=== PATIENT | female | born 1980 | race Caucasian/White ===

== ENCOUNTER 2021-12-11 03:53 | Emergency (ER) | payer OTHER, SELFPAY ==
[2021-12-11 04:05] VITALS: BP 175/77; PULSE 66; RESP 16; TEMP 36.8; O2SAT 98; BMI 25.8
[2021-12-11 04:15] VITALS: BP 159/71; PULSE 62; RESP 21; TEMP 36.8; O2SAT 100
[2021-12-11] MEDS: 0.9 % Sodium Chloride 1,000 ML 999 ML IV (04:51)
[2021-12-11] MEDS: ondansetron HCL 4 MG/2 ML VIAL IVPUSH ×3 (04:51→07:34)
--- NOTE | 2021-12-11 05:27 | ED_ITS ---
HPI - General Adult General Chief complaint: Weakness Stated complaint: Vomiting/Weakness Time Seen by Provider: 12/11/21 04:30 Source: patient Mode of arrival: ambulatory History of Present Illness HPI narrative: 41-year-old female who presents as recently moved here from [place] with complaints of nausea and vomiting in epigastric discomfort since Monday. This is not been associated with any fever, chills, sore throat, new cough, chest pain/palpitations, diarrhea or urinary pain/burning/frequency. Patient states that she has had an upper and lower endoscopy in [place] within the past year and never told that she had ulcers. She is status post cholecystectomy. She otherwise denies any prescription medications. Related Data Previous Rx's Medication Instructions Recorded sucralfate 100 mg/mL oral 10 ml PO BID #420 mL 12/11/21 suspension (Carafate) Allergies Allergy/AdvReac Type Severity Reaction Status Date / Time No Known Allergies Allergy Verified 12/11/21 04:08 Review of Systems Review of Systems: Pertinent positives and negatives as stated in HPI 10 point review of systems is otherwise negative. PMFSH Past Medical History Source: nursing notes reviewed Social History Social History Advance Directives: No Advance Directives Information Provided: Yes Patient : No Physical Exam ED Vital Signs: Vital Signs - 24 hr 12/11/21 04:05 12/11/21 04:15 12/11/21 06:00 Temperature 98.2 F 98.2 F Pulse Rate 66 62 60 Respiratory Rate 16 21 H 22 H Blood Pressure 175/77 H 159/71 H 117/66 Pulse Oximetry 98 100 97 Oxygen Delivery Method Room Air Room Air Room Air BMI result Body Mass Index 25.8 VITAL SIGNS: Reviewed. GENERAL: Well developed, well nourished, in no acute distress. HEAD: Normocephalic/atraumatic EYES: PERRLA, EOMI EARS: Ext canals without abnormality, TMs non-bulging and non-erythematous NOSE: Nares patent bilateral OROPHARYNX: no oral lesions noted, posterior pharynx clear and non-erythematous without noted tonsillar enlargement/erythema/exudates NECK: Supple, no adenopathy LUNGS: Normal breath sounds. No adventitious sounds or accessory muscle use. SpO2<98> CARDIOVASCULAR: Regular rate and rhythm without noted murmurs ABDOMEN: Soft, epigastric discomfort without rebound, non-distended with bowel sounds. MUSCULOSKELETAL: No tenderness, deformities, or effusions noted on gross inspection. EXTREMITIES: No cyanosis, clubbing or edema. SKIN: Inspection of the skin reveals no rashes NEUROLOGIC: Alert and oriented x 4. Strength and sensation to light touch were grossly intact x 4. Course Course Course Narrative: 41-year-old female with history and clinical presentation suggestive of possible gastritis, pancreatitis and less likely retained stone and patient does not feel like it is secondary to contaminated food. Review of all investigations negative for acute findings and on re-evaluation patient is feeling much better after having received IV fluids, antiemetics, as well as GI cocktail. Signed out to Dr Christensen to d/c after last fluids infused. Medical Decision Making Lab Data Result diagrams: 12/11/21 05:32 12/11/21 05:32 Labs: Lab Results 12/11/21 12/11/21 Range/Units 05:32 05:32 WBC 9.2 (4.8-10.8) X10*3/uL RBC 4.38 (4.20-5.50) X10*6/uL Hgb 14.0 (12.0-16.0) g/dl Hct 40.1 (37.0-47.0) % MCV 91.6 (80.0-98.0) fL MCH 32.0 (27.0-33.0) pg MCHC 34.9 (31.0-35.0) g/dl RDW 12.1 (11.0-16.0) % Plt Count 250 (160-400) X10*3/uL MPV 10.5 (9.4-12.3) fL Immature Gran % (Auto) 0.5 H (0.0-0.4) % Neut % (Auto) 73.8 H (45-73) % Lymph % (Auto) 15.6 L (20-40) % [place] % (Auto) 9.4 (2-11) % Eos % (Auto) 0.2 (0-4) % Baso % (Auto) 0.5 (0-2) % Lymph # (Auto) 1.4 (1.2-4.9) X10*3/uL [place] # (Auto) 0.9 (0.1-1.2) X10*3/uL Eos # (Auto) 0.0 (0.0-0.4) X10*3/uL Baso # (Auto) 0.1 (0.0-0.2) X10*3/uL Abs Immat Gran (auto) 0.05 H (0.00-0.03) X10*3/uL Absolute Neuts (auto) 6.8 (2.0-8.3) x10*3/uL Absolute Nucleated RBC 0.000 (0.0-0.012) X10*3/uL Nucleated RBC % (auto) 0.0 (0.0-0.2) /100WBC Sodium 137 (135-145) mmol/L Potassium 3.3 (3.3-5.1) mmol/L Chloride 98 (96-108) mmol/L Carbon Dioxide 26 (22-29) mmol/L Anion Gap 16 (12-20) BUN 14 (9-16) mg/dL Creatinine 0.60 (0.5-1.4) mg/dL Estim Creat Clear Calc 136.1 Estimated GFR > 60 Random Glucose 97 (60-115) mg/dL Calcium 8.8 (8.4-10.2) mg/dL Total Bilirubin 0.7 (0.0-1.0) mg/dL AST 27 (5-31) U/L ALT 21 (0-31) U/L Alkaline Phosphatase 67 (39-117) U/L Total Protein 6.9 (6.5-8.0) g/dL Albumin 4.2 (3.5-5.0) g/dL Discharge Plan Discharge Clinical Impression: Gastritis, Dehydration Patient Disposition: Home, Self-Care Instructions: Gastritis (ED), Dehydration (ED), Diet for Stomach Ulcers and Gastritis (ED) Additional Instructions: 1. Resume all home medications. 2. Continue to drink plenty of water and you have been provided a prescription for acid control. 3. Follow-up with your primary care provider next 2-3 days for re-evaluation. Return to the ER for worsening symptoms. Prescriptions: New sucralfate [Carafate] 100 mg/mL suspension 10 ml PO BID Qty: 420 0RF
[2021-12-11] MEDS: Magnesium Hydrox/Alum Hydrox 30 ML ORAL.SUSP PO (05:36)
[2021-12-11] MEDS: Lidocaine HCl Viscous 2 % 15 ML SOLUTION 10 ML MUCOUS MEM (05:37)
[2021-12-11 05:39] LABS: Basophils Absolute Auto 0.1 X10*3/uL (0.0-0.2); Basophils Percent Auto 0.5 % (0-2); Eosinophils Percent Auto 0.2 % (0-4); Hematocrit 40.1 % (37.0-47.0); Imm Gran Abs Auto 0.05 X10*3/uL (0.00-0.03); Imm Gran Pct Auto 0.5 % (0.0-0.4); Lymphocytes Absolute Auto 1.4 X10*3/uL (1.2-4.9); Lymphocytes Percent Auto 15.6 % (20-40); MANUAL DIFF FLAG NO; Mean Corpuscular HGB Conc 34.9 g/dl (31.0-35.0); Mean Corpuscular Volume 91.6 fL (80.0-98.0); Mean Platelet Volume 10.5 fL (9.4-12.3); Monocytes Absolute Auto 0.9 X10*3/uL (0.1-1.2); Monocytes Percent Auto 9.4 % (2-11); Neutrophils Absolute Auto 6.8 x10*3/uL (2.0-8.3); Neutrophils Percent Auto 73.8 % (45-73); Platelet Count 250 X10*3/uL (160-400); Red Blood Count 4.38 X10*6/uL (4.20-5.50); Red Cell Distribution Width 12.1 % (11.0-16.0); White Blood Count 9.2 X10*3/uL (4.8-10.8)
[2021-12-11 06:00] VITALS: BP 117/66; PULSE 60; RESP 22; O2SAT 97
[2021-12-11 06:03] LABS: Alanine Aminotransferase 21 U/L (0-31); Albumin Level 4.2 g/dL (3.5-5.0); Alkaline Phosphatase 67 U/L (39-117); Anion Gap 16 (12-20); Aspartate Amino Transferase 27 U/L (5-31); Bilirubin Total 0.7 mg/dL (0.0-1.0); Blood Urea Nitrogen 14 mg/dL (9-16); Calcium 8.8 mg/dL (8.4-10.2); Carbon Dioxide 26 mmol/L (22-29); Chloride 98 mmol/L (96-108); Creatinine Clr Calc Pharmacy 136.1; Estimated Glomerular Filt Rate > 60; Glucose Random 97 mg/dL (60-115); Potassium 3.3 mmol/L (3.3-5.1); Sodium 137 mmol/L (135-145); Total Protein 6.9 g/dL (6.5-8.0)
[2021-12-11 06:27] LABS: Lipase 28 U/L (8-78)
[2021-12-11] MEDS: Sucralfate Oral Suspension 1 GM/10 ML ORAL.SUSP PO (06:35)
[2021-12-11 07:02] LABS: Appearance Urine Clear; Color Urine Dark Yellow; Glucose Urine UA Negative (Negative); Leukocyte Esterase Urine Trace (Negative); Nitrite Urine Negative (Negative); Specific Gravity - Urine >= 1.030 (1.005-1.025); UMIC TRIGGER UACC YES; UPreg QC Valid YES; Urine Blood Trace (Negative); Urine Ketones 40 mg/dL (Negative); Urine Pregnancy NEGATIVE (NEGATIVE); Urine Protein 30 (1+) mg/dL (Neg-Trace)
[2021-12-11 07:05] LABS: Bacteria Urine None Seen (None Seen); WBC Urine 0-5 /HPF (0-5)
== END 2021-12-11 07:53 | disposition home or self-care (01) ==
PROVIDERS: Student in an Organized Health Care Education/Training Program; Emergency Provider Emergency Medicine
DX: K29.70 Gastritis, unspecified, without bleeding (principal); E86.0 Dehydration; R11.2 Nausea with vomiting, unspecified
CPT/HCPCS: 36415; 80053; 81001; 81003; 81025; 83690; 85025; 96361; 96374; 96376; 99284; 99285; J2405

== ENCOUNTER 2021-12-12 01:59 | Emergency (ER) | payer OTHER, SELFPAY ==
--- NOTE | ~2021-12-12 | CT_ITS ---
EXAMINATION: CT ABDOMEN AND PELVIS WITH CONTRAST CLINICAL INFORMATION: Abdominal pain COMPARISON: None TECHNIQUE: Multidetector volumetric images were obtained from the superior aspect of the liver through the pubic symphysis following administration 85 mL of Omnipaque 350 intravenous contrast. Sagittal and coronal reformatted images were obtained on the technologist's workstation. Oral contrast: Yes This CT examination was performed using dose optimization techniques as appropriate, variously including the following: *Automated exposure control *Adjustment of mA and/or kV according to patient size (this includes techniques or standardized protocols for targeted exams where dose is matched to indication/reason for exam; i.e. extremities or head) *Use of iterative reconstruction technique DLP: 507 mGy-cm FINDINGS: LUNG BASES: The visualized lung bases are unremarkable. LIVER, GALLBLADDER, AND BILIARY TREE: The liver is normal in size, shape, and attenuation. There is a focal hypoechoic area in the medial segment of the left lobe near the falciform ligament. This measures 2 x 4 cm. This is more prominent than normally seen with vascular changes or focal fatty infiltration related to the falciform ligament and is questionable for focal liver lesion. The gallbladder is been removed. There is no biliary duct dilatation. PANCREAS: Unremarkable. SPLEEN: Unremarkable. ADRENAL GLANDS: Unremarkable. KIDNEYS AND URETERS: The kidneys are normal in size, shape, and attenuation. No hydronephrosis, hydroureter, or calculi seen. No perinephric stranding. BLADDER: Unremarkable. GASTROINTESTINAL TRACT: There is mild diverticulosis of the colon. Small and large bowel is otherwise unremarkable. The appendix is not seen. The stomach is normal. ABDOMINAL WALL: No significant hernia is appreciated. LYMPH NODES: Normal. VASCULAR: Unremarkable. PELVIC VISCERA: The uterus appears to have been removed. There is a 3 x 4 cm left ovarian cyst. This appears minimally complex with slightly thickened wall. There is trace fluid in the pelvis. OSSEOUS STRUCTURES: Unremarkable. CT/CT abdomen pelvis w IV con IMPRESSION: 3 x 4 cm left ovarian cyst. Question 2 x 4 cm lesion in the left lobe of the liver. Comparison with old outside exams if available is recommended. Otherwise further evaluation with liver MRI should be considered. Mild diverticulosis. No evidence of diverticulitis. Fleischner guidelines were followed.
[2021-12-12 02:00] VITALS: BP 172/81; PULSE 73; RESP 18; TEMP 37.2; O2SAT 100; BMI 25.8
[2021-12-12 02:14] LABS: MANUAL DIFF FLAG NO
[2021-12-12 02:15] LABS: Basophils Percent Auto 0.4 % (0-2); Eosinophils Percent Auto 0.3 % (0-4); Hematocrit 40.5 % (37.0-47.0); Hemoglobin 14.2 g/dl (12.0-16.0); Imm Gran Abs Auto 0.06 X10*3/uL (0.00-0.03); Imm Gran Pct Auto 0.5 % (0.0-0.4); Lymphocytes Absolute Auto 1.8 X10*3/uL (1.2-4.9); Lymphocytes Percent Auto 15.9 % (20-40); Mean Corpuscular HGB Conc 35.1 g/dl (31.0-35.0); Mean Corpuscular Volume 91.2 fL (80.0-98.0); Mean Platelet Volume 10.5 fL (9.4-12.3); Monocytes Absolute Auto 0.9 X10*3/uL (0.1-1.2); Monocytes Percent Auto 7.8 % (2-11); Neutrophils Absolute Auto 8.3 x10*3/uL (2.0-8.3); Neutrophils Percent Auto 75.1 % (45-73); Platelet Count 248 X10*3/uL (160-400); Red Blood Count 4.44 X10*6/uL (4.20-5.50); Red Cell Distribution Width 12.1 % (11.0-16.0); White Blood Count 11.1 X10*3/uL (4.8-10.8)
[2021-12-12 02:34] LABS: Alanine Aminotransferase 19 U/L (0-31); Albumin Level 4.4 g/dL (3.5-5.0); Alkaline Phosphatase 71 U/L (39-117); Anion Gap 13 (12-20); Aspartate Amino Transferase 26 U/L (5-31); Bilirubin Direct 0.4 mg/dL (0.0-0.5); Bilirubin Total 0.8 mg/dL (0.0-1.0); Blood Urea Nitrogen 12 mg/dL (9-16); Calcium 9.2 mg/dL (8.4-10.2); Carbon Dioxide 30 mmol/L (22-29); Chloride 97 mmol/L (96-108); Creatinine Clr Calc Pharmacy 121.9; Estimated Glomerular Filt Rate > 60; Glucose Random 105 mg/dL (60-115); Lipase 26 U/L (8-78); Potassium 3.4 mmol/L (3.3-5.1); Sodium 137 mmol/L (135-145); Total Protein 7.3 g/dL (6.5-8.0)
[2021-12-12 02:55] VITALS: BP 172/74; PULSE 67; RESP 17; TEMP 37.4; O2SAT 100
[2021-12-12 03:33] VITALS: BP 146/70; PULSE 72; RESP 17; O2SAT 99
[2021-12-12 03:38] LABS: Appearance Urine Turbid; Color Urine Yellow; Glucose Urine UA Negative (Negative); Leukocyte Esterase Urine Negative (Negative); Nitrite Urine Negative (Negative); PH 8.5 (5.0-9.0); UMIC TRIGGER UACC YES; Urine Blood Trace (Negative); Urine Ketones 80 mg/dL (Negative); Urine Protein Trace mg/dL (Neg-Trace)
[2021-12-12 03:40] LABS: Bacteria Urine None Seen (None Seen); Hyaline Casts Urine 0-2 /LPF (0-2); WBC Urine 0-5 /HPF (0-5)
[2021-12-12 04:12] LABS: COVID-19 Test Negative (Negative)
[2021-12-12 04:18] LABS: Anion Gap 16 (12-20); Blood Urea Nitrogen 12 mg/dL (9-16); Calcium 8.6 mg/dL (8.4-10.2); Carbon Dioxide 25 mmol/L (22-29); Chloride 99 mmol/L (96-108); Creatinine Clr Calc Pharmacy 125.6; Estimated Glomerular Filt Rate > 60; Glucose Random 99 mg/dL (60-115); Potassium 3.7 mmol/L (3.3-5.1); Sodium 136 mmol/L (135-145)
[2021-12-12 05:56] VITALS: BP 150/70; PULSE 59; RESP 16; TEMP 37.3; O2SAT 96
--- NOTE | 2021-12-12 06:52 | PC.NURSE ---
Patient presses call dai at this time to state she is thinking about going to another hospital. She states actually, I'll wait for one more hour.
--- NOTE | 2021-12-12 07:04 | ED_ITS ---
HPI - Abdominal Pain General Chief Complaint: Abdominal Pain Stated Complaint: n/v Time Seen by Provider: 12/12/21 07:02 Source: patient History of Present Illness HPI narrative: Patient is 41-year-old female presents today with having nausea vomiting generalized malaise. Abdominal pain diffuse. Patient has a history of using marijuana. Patient denies any recent abdominal surgery. Previously it had her gallbladder taken out. Denies any coughing congestion upper respiratory symptoms. Denies any changes in diet. Positive passing gas positive small amount of bowel movement. Symptoms been ongoing for the last 7 days. Related Data Previous Rx's Medication Instructions Recorded sucralfate 100 mg/mL oral 10 ml PO BID #420 mL 12/11/21 suspension (Carafate) Allergies Allergy/AdvReac Type Severity Reaction Status Date / Time No Known Allergies Allergy Verified 12/11/21 04:08 Review of Systems Review of Systems Positive nausea vomiting Yes all other systems are reviewed and are negative PMFSH Past Medical History Attestation statement: The following information was validated with the patient. Social History Social History Advance Directives: No Patient : No Physical Exam ED Vital Signs: Vital Signs - 24 hr 12/12/21 02:00 12/12/21 02:55 12/12/21 03:33 Temperature 99.0 F 99.3 F Pulse Rate 73 67 72 Respiratory Rate 18 17 17 Blood Pressure 172/81 H 172/74 H 146/70 H Pulse Oximetry 100 100 99 Oxygen Delivery Method Room Air Room Air 12/12/21 05:56 12/12/21 07:18 Temperature 99.2 F 98.6 F Pulse Rate 59 58 Respiratory Rate 16 16 Blood Pressure 150/70 H 143/66 H Pulse Oximetry 96 98 Oxygen Delivery Method Room Air Room Air BMI result Body Mass Index 25.8 No Appearance: Alert. Oriented X3. No acute distress. Eyes: Pupils equal, round and reactive to light. ENT: Pharynx normal. Neck: Normal inspection. Neck supple. No lymph nodes noted. No crepitus CVS: Normal heart rate and rhythm. Pulses normal. Normal S1 and S2 Respiratory: No respiratory distress. Breath sounds normal. No Wheezing. No rales Abdomen: Soft and nontender. No rigidity. No distention. good BS x4 Skin: Skin warm and dry. Normal skin color. Normal skin turgor. Extremities: No lower extremity edema. Neurovascular intact to all extremities. No Lacerations. No Rash Neuro: Oriented X 3. No motor deficit. No sensory deficit. Moving all extermities. No slurred speech MDM - Abdominal Pain MDM Narrative Medical decision making narrative: CT scan of the abdomen pelvis was negative for any acute evidence of obstruction, abscess, perforation. It did show a possible ovarian lesion and a possible liver lesion. Once he relayed this message to patient. Patient eloped from the emergency department. Attempted to contact patient's phone number on record. Mailbox not set up no one to peanut picker. Differential Diagnosis Differential diagnosis: Likely abdominal pain Differential diagnosis narrative:: Nausea vomiting Medical Records Attestation: I reviewed the patient's medical records. Lab Data Attestation: I reviewed the patient's lab results. Result diagrams: 12/12/21 02:10 12/12/21 03:46 Labs: Lab Results 12/12/21 12/12/21 12/12/21 Range/Units 02:10 02:10 03:31 WBC 11.1 H (4.8-10.8) X10*3/uL RBC 4.44 (4.20-5.50) X10*6/uL Hgb 14.2 (12.0-16.0) g/dl Hct 40.5 (37.0-47.0) % MCV 91.2 (80.0-98.0) fL MCH 32.0 (27.0-33.0) pg MCHC 35.1 H (31.0-35.0) g/dl RDW 12.1 (11.0-16.0) % Plt Count 248 (160-400) X10*3/uL MPV 10.5 (9.4-12.3) fL Immature Gran % (Auto) 0.5 H (0.0-0.4) % Neut % (Auto) 75.1 H (45-73) % Lymph % (Auto) 15.9 L (20-40) % [place] % (Auto) 7.8 (2-11) % Eos % (Auto) 0.3 (0-4) % Baso % (Auto) 0.4 (0-2) % Lymph # (Auto) 1.8 (1.2-4.9) X10*3/uL [place] # (Auto) 0.9 (0.1-1.2) X10*3/uL Eos # (Auto) 0.0 (0.0-0.4) X10*3/uL Baso # (Auto) 0.0 (0.0-0.2) X10*3/uL Abs Immat Gran (auto) 0.06 H (0.00-0.03) X10*3/uL Absolute Neuts (auto) 8.3 (2.0-8.3) x10*3/uL Absolute Nucleated RBC 0.000 (0.0-0.012) X10*3/uL Nucleated RBC % (auto) 0.0 (0.0-0.2) /100WBC Sodium 137 (135-145) mmol/L Potassium 3.4 (3.3-5.1) mmol/L Chloride 97 (96-108) mmol/L Carbon Dioxide 30 H (22-29) mmol/L Anion Gap 13 (12-20) BUN 12 (9-16) mg/dL Creatinine 0.67 (0.5-1.4) mg/dL Estim Creat Clear Calc 121.9 Estimated GFR > 60 Random Glucose 105 (60-115) mg/dL Calcium 9.2 (8.4-10.2) mg/dL Total Bilirubin 0.8 (0.0-1.0) mg/dL Direct Bilirubin 0.4 (0.0-0.5) mg/dL AST 26 (5-31) U/L ALT 19 (0-31) U/L Alkaline Phosphatase 71 (39-117) U/L Total Protein 7.3 (6.5-8.0) g/dL Albumin 4.4 (3.5-5.0) g/dL Lipase 26 (8-78) U/L Beta HCG, Quant mIU/mL Urine Color Yellow Urine Appearance Turbid Urine pH 8.5 (5.0-9.0) Ur Specific [place] 1.020 (1.005-1.025) Urine Protein Trace (Neg-Trace) mg/dL Urine Glucose (UA) Negative (Negative) mg/dL Urine Ketones 80 (Negative) mg/dL Urine Blood Trace H (Negative) Urine Nitrite Negative (Negative) Ur Leukocyte Esterase Negative (Negative) Urine RBC 11-20 H (0-2) /HPF Urine WBC 0-5 (0-5) /HPF Ur Squamous Epith Cells 3-5 (0-2) /HPF Urine Bacteria None Seen (None Seen) Hyaline Casts 0-2 (0-2) /LPF COVID-19 ([facility]) (Negative) COVID-19 Clin Com 12/12/21 12/12/21 Range/Units 03:46 03:46 WBC (4.8-10.8) X10*3/uL RBC (4.20-5.50) X10*6/uL Hgb (12.0-16.0) g/dl Hct (37.0-47.0) % MCV (80.0-98.0) fL MCH (27.0-33.0) pg MCHC (31.0-35.0) g/dl RDW (11.0-16.0) % Plt Count (160-400) X10*3/uL MPV (9.4-12.3) fL Immature Gran % (Auto) (0.0-0.4) % Neut % (Auto) (45-73) % Lymph % (Auto) (20-40) % [place] % (Auto) (2-11) % Eos % (Auto) (0-4) % Baso % (Auto) (0-2) % Lymph # (Auto) (1.2-4.9) X10*3/uL [place] # (Auto) (0.1-1.2) X10*3/uL Eos # (Auto) (0.0-0.4) X10*3/uL Baso # (Auto) (0.0-0.2) X10*3/uL Abs Immat Gran (auto) (0.00-0.03) X10*3/uL Absolute Neuts (auto) (2.0-8.3) x10*3/uL Absolute Nucleated RBC (0.0-0.012) X10*3/uL Nucleated RBC % (auto) (0.0-0.2) /100WBC Sodium 136 (135-145) mmol/L Potassium 3.7 (3.3-5.1) mmol/L Chloride 99 (96-108) mmol/L Carbon Dioxide 25 (22-29) mmol/L Anion Gap 16 (12-20) BUN 12 (9-16) mg/dL Creatinine 0.65 (0.5-1.4) mg/dL Estim Creat Clear Calc 125.6 Estimated GFR > 60 Random Glucose 99 (60-115) mg/dL Calcium 8.6 D (8.4-10.2) mg/dL Total Bilirubin (0.0-1.0) mg/dL Direct Bilirubin (0.0-0.5) mg/dL AST (5-31) U/L ALT (0-31) U/L Alkaline Phosphatase (39-117) U/L Total Protein (6.5-8.0) g/dL Albumin (3.5-5.0) g/dL Lipase (8-78) U/L Beta HCG, Quant < 2 mIU/mL Urine Color Urine Appearance Urine pH (5.0-9.0) Ur Specific [place] (1.005-1.025) Urine Protein (Neg-Trace) mg/dL Urine Glucose (UA) (Negative) mg/dL Urine Ketones (Negative) mg/dL Urine Blood (Negative) Urine Nitrite (Negative) Ur Leukocyte Esterase (Negative) Urine RBC (0-2) /HPF Urine WBC (0-5) /HPF Ur Squamous Epith Cells (0-2) /HPF Urine Bacteria (None Seen) Hyaline Casts (0-2) /LPF COVID-19 ([facility]) Negative (Negative) COVID-19 Clin Com See Note Discharge Plan Discharge Clinical Impression: Vomiting Patient Disposition: Elopement Prescriptions: No Action sucralfate [Carafate] 100 mg/mL suspension 10 ml PO BID Qty: 420 0RF Interventions: ED Discharge Assessment Last Done: 12/12/21 09:16 Discharge Date/Time: 12/12/21 09:18
[2021-12-12 07:18] VITALS: BP 143/66; PULSE 58; RESP 16; TEMP 37; O2SAT 98
[2021-12-12] MEDS: 0.9 % Sodium Chloride 1,000 ML 999 ML IV (07:42)
[2021-12-12] MEDS: Haloperidol Lactate 5 MG/ML VIAL IM (08:02)
[2021-12-12] MEDS: iohexoL 350 MG/ML 100 ML INFUS..BTL IV (08:33)
[2021-12-12 08:39] LABS: HCG Quantitative < 2 mIU/mL
--- NOTE | 2021-12-12 09:12 | PC.NURSE ---
Pt not at bedside, attempted twice, still no sign of pt. Alpesh on the bed. MD aware.
== END 2021-12-12 09:18 | disposition left against medical advice (07) ==
PROVIDERS: Student in an Organized Health Care Education/Training Program; Emergency Provider Emergency Medicine Emergency Medical Services
DX: R11.2 Nausea with vomiting, unspecified (principal); R10.9 Unspecified abdominal pain; Z20.822 Contact with and (suspected) exposure to COVID-19; Z79.899 Other long term (current) drug therapy
CPT/HCPCS: 36415; 74177; 80048; 80053; 81001; 82248; 83690; 84702; 85025; 87635; 96360; 96372; 99284; 99285; Q9967

== ENCOUNTER 2021-12-22 02:16 | Emergency (ER) | payer OTHER, SELFPAY ==
[2021-12-22 02:21] VITALS: BP 149/90; PULSE 89; RESP 18; TEMP 37; O2SAT 100; BMI 27.3
[2021-12-22 02:34] LABS: Basophils Percent Auto 0.3 % (0-2); Hematocrit 39.9 % (37.0-47.0); Imm Gran Abs Auto 0.03 X10*3/uL (0.00-0.03); Imm Gran Pct Auto 0.3 % (0.0-0.4); Lymphocytes Absolute Auto 0.6 X10*3/uL (1.2-4.9); Lymphocytes Percent Auto 6.2 % (20-40); MANUAL DIFF FLAG SCAN; Mean Corpuscular HGB Conc 35.1 g/dl (31.0-35.0); Mean Corpuscular Hemoglobin 32.5 pg (27.0-33.0); Mean Corpuscular Volume 92.6 fL (80.0-98.0); Monocytes Absolute Auto 0.1 X10*3/uL (0.1-1.2); Monocytes Percent Auto 1.4 % (2-11); Neutrophils Absolute Auto 9.2 x10*3/uL (2.0-8.3); Neutrophils Percent Auto 91.8 % (45-73); Platelet Count 315 X10*3/uL (160-400); Red Blood Count 4.31 X10*6/uL (4.20-5.50); SCAN SMEAR FLAG 1; White Blood Count 10.1 X10*3/uL (4.8-10.8)
[2021-12-22 02:55] LABS: SLIDE REVIEW VERIFIED
[2021-12-22 02:56] LABS: Alanine Aminotransferase 34 U/L (0-31); Albumin Level 4.5 g/dL (3.5-5.0); Alkaline Phosphatase 65 U/L (39-117); Anion Gap 17 (12-20); Aspartate Amino Transferase 39 U/L (5-31); Bilirubin Total 0.5 mg/dL (0.0-1.0); Blood Urea Nitrogen 13 mg/dL (9-16); Calcium 9.7 mg/dL (8.4-10.2); Carbon Dioxide 24 mmol/L (22-29); Chloride 102 mmol/L (96-108); Estimated Glomerular Filt Rate > 60; Glucose Random 152 mg/dL (60-115); Sodium 139 mmol/L (135-145); Total Protein 7.5 g/dL (6.5-8.0)
[2021-12-22] MEDS: 0.9 % Sodium Chloride 1,000 ML 999 ML IV (03:20)
[2021-12-22] MEDS: Midazolam HCl/PF 2 MG/2 ML VIAL 1 MG IVPUSH (03:25)
[2021-12-22] MEDS: Prochlorperazine Edisylate 10 MG/2 ML VIAL IVPUSH (03:25)
[2021-12-22 04:33] VITALS: BP 142/83; PULSE 92; RESP 18; O2SAT 99
--- NOTE | 2021-12-22 04:55 | ED.ABDPAIN ---
HPI - Abdominal Pain General Chief Complaint: Abdominal Pain Stated Complaint: Vomiting/Weakness Time Seen by Provider: 12/22/21 02:53 Source: patient Mode of arrival: ambulatory Limitations: no limitations History of Present Illness HPI narrative: Patient id frequent vomiting syndrome been to emergency room multiple times comes here for vomiting since 14:00 today unable to hold any liquids down same problem going on for years patient smokes marijuana Related Data Previous Rx's Medication Instructions Recorded sucralfate 100 mg/mL oral 10 ml PO BID #420 mL 12/11/21 suspension (Carafate) lorazepam 1 mg tablet (Ativan) 1 mg PO BID PRN anxiety #20 tabs 12/22/21 ondansetron 4 mg disintegrating 4 mg PO Q6-8H PRN nausea and 12/22/21 tablet vomiting #15 tabs Allergies Allergy/AdvReac Type Severity Reaction Status Date / Time No Known Allergies Allergy Verified 12/22/21 02:21 Review of Systems Review of Systems Yes all other systems are reviewed and are negative [facility] Social History Social History Advance Directives: No Advance Directives Information Provided: No Physical Exam ED Vital Signs: Vital Signs - 24 hr 12/22/21 02:21 12/22/21 04:33 Temperature 98.6 F Pulse Rate 89 92 Respiratory Rate 18 18 Blood Pressure 149/90 H 142/83 H Pulse Oximetry 100 99 Oxygen Delivery Method Room Air Room Air BMI result Body Mass Index 27.3 Appearance: Alert. Oriented X3. No acute distress. Anxious Eyes: PERRLA, No Nystagmus ENT: Pharynx normal. Oral Mucosa moist vomiting Neck: Normal inspection. Neck supple. CVS: Normal heart rate and rhythm. Pulses normal. Respiratory: No respiratory distress. Equal air entry bilateral, no wheezing/rales/rhonchi Abdomen: Soft, diffuse tenderness no rebound tenderness no guarding Bowel sounds are present, no mass palpable, no CVA tenderness Skin: Skin warm and dry. Normal skin color. Normal skin turgor. Extremities: No lower extremity edema. No calf tenderness Neuro: Oriented X 3. No motor deficit. No sensory deficit.No cerebellar signs , cranial nerves II-XII intact MDM - Abdominal Pain Lab Data Result diagrams: 12/22/21 02:29 12/22/21 02:29 Labs: Lab Results 12/22/21 12/22/21 Range/Units 02:29 02:29 WBC 10.1 (4.8-10.8) X10*3/uL RBC 4.31 (4.20-5.50) X10*6/uL Hgb 14.0 (12.0-16.0) g/dl Hct 39.9 (37.0-47.0) % MCV 92.6 (80.0-98.0) fL MCH 32.5 (27.0-33.0) pg MCHC 35.1 H (31.0-35.0) g/dl RDW 13.0 (11.0-16.0) % Plt Count 315 D (160-400) X10*3/uL MPV 10.0 (9.4-12.3) fL Immature Gran % (Auto) 0.3 (0.0-0.4) % Neut % (Auto) 91.8 H (45-73) % Lymph % (Auto) 6.2 L (20-40) % [place] % (Auto) 1.4 L (2-11) % Eos % (Auto) 0.0 (0-4) % Baso % (Auto) 0.3 (0-2) % Lymph # (Auto) 0.6 L (1.2-4.9) X10*3/uL [place] # (Auto) 0.1 (0.1-1.2) X10*3/uL Eos # (Auto) 0.0 (0.0-0.4) X10*3/uL Baso # (Auto) 0.0 (0.0-0.2) X10*3/uL Abs Immat Gran (auto) 0.03 (0.00-0.03) X10*3/uL Absolute Neuts (auto) 9.2 H (2.0-8.3) x10*3/uL Absolute Nucleated RBC 0.000 (0.0-0.012) X10*3/uL Nucleated RBC % (auto) 0.0 (0.0-0.2) /100WBC Smear Tech's Comments VERIFIED Sodium 139 (135-145) mmol/L Potassium 4.0 (3.3-5.1) mmol/L Chloride 102 (96-108) mmol/L Carbon Dioxide 24 (22-29) mmol/L Anion Gap 17 (12-20) BUN 13 (9-16) mg/dL Creatinine 0.71 (0.5-1.4) mg/dL Estim Creat Clear Calc 118.0 Estimated GFR > 60 Random Glucose 152 H (60-115) mg/dL Calcium 9.7 D (8.4-10.2) mg/dL Total Bilirubin 0.5 (0.0-1.0) mg/dL AST 39 H D (5-31) U/L ALT 34 H (0-31) U/L Alkaline Phosphatase 65 (39-117) U/L Total Protein 7.5 (6.5-8.0) g/dL Albumin 4.5 (3.5-5.0) g/dL Discharge Plan Discharge Clinical Impression: Cyclic vomiting syndrome Patient Disposition: Home, Self-Care Instructions: Cyclic Vomiting Syndrome (ED) Additional Instructions: Drink plenty of fluids Ativan for increased anxiety Stop smoking cannabis Zofran for vomiting Prescriptions: New ondansetron 4 mg tablet,disintegrating 4 mg PO Q6-8H PRN (Reason: nausea and vomiting) Qty: 15 0RF lorazepam [Ativan] 1 mg tablet 1 mg PO BID PRN (Reason: anxiety) Qty: 20 0RF No Action sucralfate [Carafate] 100 mg/mL suspension 10 ml PO BID Qty: 420 0RF Interventions: ED Discharge Assessment Last Done: 12/22/21 05:40 Discharge Date/Time: 12/22/21 05:41
== END 2021-12-22 05:41 | disposition home or self-care (01) ==
PROVIDERS: Emergency Provider Internal Medicine
DX: R11.15 Cyclical vomiting syndrome unrelated to migraine (principal); Z79.899 Other long term (current) drug therapy
CPT/HCPCS: 36415; 80053; 85025; 96361; 96374; 96375; 99284; J2250

== ENCOUNTER 2022-12-12 15:57 | Emergency (ER) | payer OTHER, SELFPAY ==
[2022-12-12 16:06] VITALS: BP 188/78; PULSE 64; RESP 18; TEMP 37.1; O2SAT 100; BMI 32.1
--- NOTE | 2022-12-12 16:06 | ED.GENADULT ---
HPI - General Adult General Chief complaint: Nausea/Vomiting/Diarrhea Stated complaint: vomiting since Sat Time Seen by Provider: 12/12/22 17:18 Source: patient Mode of arrival: ambulatory Limitations: no limitations History of Present Illness HPI narrative: Patient comes to the emergency room complaining of nausea vomiting and diarrhea for 2 days. Patient admits to prior history of cyclical vomiting. Patient denies chest pain, shortness of breath, complaining of abdominal cramping. Patient denies any UTI symptoms. Related Data Previous Rx's Medication Instructions Recorded metoclopramide HCl 5 mg tablet 5 mg PO .B.i.d. PRN nausea and 12/12/22 (Reglan) vomiting #10 tabs Allergies Allergy/AdvReac Type Severity Reaction Status Date / Time No Known Allergies Allergy Verified 12/12/22 16:08 Review of Systems Review of Systems: Constitutional : No Weight loss, No Fever, No Chills, No Night Sweats, No Fatigue, No Malaise ENT/Mouth : No Hearing loss, No Ear Pain, No Nasal Congestion, No Sinus Pain, No Hoarseness, No sore throat, No Rhinorrhea, No Swallowing Difficulty Eyes: No Eye Pain, No Swelling, No Redness, No Foreign Body, No Discharge, No Vision Changes Cardiovascular : No Chest Pain, No SOB, No Dyspnea on Exertion, No Orthopnea, No Edema, No Palpitations Respiratory : No Cough, No Sputum, No Wheezing, No Smoke Exposure, No Dyspnea Gastrointestinal : Complaining of nausea, vomiting, diarrhea for 2 days. Complaining of abdominal discomfort/cramping and burning in epigastric area. Genitourinary : no irregular bleeding, No Dysuria, No Urinary Frequency, No Hematuria, No Urinary Incontinence, No Urgency, No Flank Pain, No Urinary Flow Changes, No Hesitancy Musculoskeletal : No joint pain, No Myalgias, No Joint Swelling Skin : No Skin Lesions, No rash Neuro : No Weakness, No Numbness, No Paresthesias, No Loss of Consciousness, No Dizziness, No Headache Psych : No Anxiety/Panic, No Depression, No SI/HI/AH/VH, No Social Issues, Heme/Lymph: No Bruising, No Bleeding,No Lymphadenopathy Endocrine : No Polyuria, No Polydipsia, No Temperature Intolerance PMFSH Past Medical History Medical History Marijuana use Social History Social History Smoked in Last 30 Days: No Use of substances other than those prescribed or required for medical reasons: Yes Substance Use Type: Marijuana Advance Directives: No Advance Directives Information Provided: No Patient : No Physical Exam ED Vital Signs: Vital Signs - 24 hr 12/12/22 16:06 12/12/22 18:17 12/12/22 19:11 Temperature 98.7 F 99.0 F Pulse Rate 64 77 61 Respiratory Rate 18 20 18 Blood Pressure 188/78 H 181/74 H 184/76 H Pulse Oximetry 100 98 95 Oxygen Delivery Method Room Air Room Air Room Air BMI result Body Mass Index 32.1 Course Course Course Narrative: This is an RME: Additional HPI, ROS, PE not included below will be deferred to primary provider. This is a 89-hvas[age]epg-female, with no known past medical history, presenting to the Er with a complaint of nausea, vomiting, and epigastric pain x 2 days. Admitting to having some diarrhea. BP 188/78. Has had cholescytectomy 5 years ago. No CP/SOB. Plan: Labs, UA Medications Administered Discontinued Medications Generic Name Dose Route Start Last Admin Trade Name Eligioq PRN Reason Stop Dose Admin Diphenhydramine HCl 50 mg 12/12/22 17:28 12/12/22 17:38 Diphenhydramine Hcl 50 Mg/Ml Vial IVPUSH 12/12/22 17:29 50 mg ONCE ONE Administration Famotidine 20 mg 12/12/22 17:28 12/12/22 17:39 Famotidine/Pf 20 Mg/2 Ml Vial IVPUSH 12/12/22 17:29 20 mg ONCE ONE Administration Haloperidol Lactate 2.5 mg 12/12/22 19:33 12/12/22 19:55 Haloperidol Lactate 5 Mg/Ml Vial IM 12/12/22 19:34 2.5 mg STAT STA Administration Sodium Chloride 1,000 mls @ 999 mls/hr 12/12/22 17:28 12/12/22 19:55 Ns IVCONT 12/12/22 18:28 Infused .Q1H1M ONE Infusion Ketorolac Tromethamine 30 mg 12/12/22 17:28 12/12/22 17:37 Ketorolac Tromethamine 30 Mg/Ml Vial IVPUSH 12/12/22 17:29 30 mg ONCE ONE Administration Metoclopramide HCl 10 mg 12/12/22 17:28 12/12/22 17:39 Metoclopramide Hcl 10 Mg/2 Ml Vial IVPUSH 12/12/22 17:29 10 mg ONCE ONE Administration Ondansetron HCl 4 mg 12/12/22 16:51 12/12/22 16:56 Ondansetron Odt 4 Mg Tab.Kamryndis TRANSLINGU 12/12/22 16:52 4 mg ONCE ONE Administration Medical Decision Making Medical Decision Making MDM Narrative: -my interpretation of labs: White blood cell count elevated secondary to reactive leukocytosis, mildly decreased potassium 3.2, normal is 3.3 -after IV fluids and IV medications, patient states she feels much better. Tolerating p.o., no longer nauseous. Differential Diagnosis Differential Diagnoses: The differential diagnosis associated with the presentation includes (Gastritis, gastroenteritis, cyclical vomiting) Admission/Observation Consideration of admission/observation: Escalation of care including admission/observation considered (Patient was not tolerating p.o. on arrival, [place] considered) Lab Data [facility] Lab Attestation statement: I reviewed the patient's lab results. 12/12/22 16:39 12/12/22 16:39 Labs: Lab Results 12/12/22 12/12/22 Range/Units 16:35 16:39 WBC 11.5 H (4.8-10.8) X10*3/uL RBC 4.41 (4.20-5.50) X10*6/uL Hgb 13.9 (12.0-16.0) g/dl Hct 40.1 (37.0-47.0) % MCV 90.9 (80.0-98.0) fL MCH 31.5 (27.0-33.0) pg MCHC 34.7 (31.0-35.0) g/dl RDW 12.8 (11.0-16.0) % Plt Count 283 (160-400) X10*3/uL MPV 10.5 (9.4-12.3) fL Immature Gran % (Auto) 0.5 H (0.0-0.4) % Neut % (Auto) 88.1 H (45-73) % Lymph % (Auto) 7.3 L (20-40) % [place] % (Auto) 3.9 (2-11) % Eos % (Auto) 0.0 (0-4) % Baso % (Auto) 0.2 (0-2) % Lymph # (Auto) 0.8 L (1.2-4.9) X10*3/uL [place] # (Auto) 0.5 (0.1-1.2) X10*3/uL Eos # (Auto) 0.0 (0.0-0.4) X10*3/uL Baso # (Auto) 0.0 (0.0-0.2) X10*3/uL Abs Immat Gran (auto) 0.06 H (0.00-0.03) X10*3/uL Absolute Neuts (auto) 10.2 H (2.0-8.3) x10*3/uL Absolute Nucleated RBC 0.000 (0.0-0.012) X10*3/uL Nucleated RBC % (auto) 0.0 (0.0-0.2) /100WBC Sodium 141 (135-145) mmol/L Potassium 3.2 L (3.3-5.1) mmol/L Chloride 109 H (96-108) mmol/L Carbon Dioxide 20 L (22-29) mmol/L Anion Gap 15 (12-20) BUN 14 (9-16) mg/dL Creatinine 0.64 (0.5-1.4) mg/dL Estim Creat Clear Calc 144.5 Estimated GFR > 60 POC Glucose 153 H (60-115) mg/dL Random Glucose 156 H (60-115) mg/dL Calcium 9.2 (8.4-10.2) mg/dL Magnesium 2.0 (1.6-2.6) mg/dL Total Bilirubin 0.4 (0.0-1.0) mg/dL Direct Bilirubin 0.2 (0.0-0.5) mg/dL AST 40 H (5-31) U/L ALT 24 (0-31) U/L Alkaline Phosphatase 84 (39-117) U/L Troponin I High Sens < 2.7 (<3.5-17.0) ng/L Total Protein 8.0 (6.5-8.0) g/dL Albumin 4.3 (3.5-5.0) g/dL Lipase 18 (8-78) U/L Beta HCG, Quant < 2 mIU/mL Ethyl Alcohol < 10 mg/dL Critical Care Time Critical Care Time Critical Care Time: Yes Total Critical Care Time: 45 Attestation: I have personally provided critical care time. Time includes review of lab data, radiology results, discussion with consultants, and monitoring for potential decompensation. Intervention performed as documented. Discharge Plan Discharge Clinical Impression: Nausea & vomiting Patient Disposition: Home, Self-Care Instructions: Acute Nausea and Vomiting (ED) Additional Instructions: Please follow-up with your primary care physician tomorrow. If you have any worsening or new symptoms, please return to the emergency room or call 911 Prescriptions: New metoclopramide HCl [Reglan] 5 mg tablet 5 mg PO .B.i.d. PRN (Reason: nausea and vomiting) Qty: 10 0RF
[2022-12-12 16:43] LABS: Glucose, Whole Blood 153 mg/dL (60-115)
[2022-12-12 16:43] LABS: MANUAL DIFF FLAG NO
[2022-12-12 16:51] LABS: Basophils Percent Auto 0.2 % (0-2); Hematocrit 40.1 % (37.0-47.0); Hemoglobin 13.9 g/dl (12.0-16.0); Imm Gran Abs Auto 0.06 X10*3/uL (0.00-0.03); Imm Gran Pct Auto 0.5 % (0.0-0.4); Lymphocytes Absolute Auto 0.8 X10*3/uL (1.2-4.9); Lymphocytes Percent Auto 7.3 % (20-40); Mean Corpuscular HGB Conc 34.7 g/dl (31.0-35.0); Mean Corpuscular Hemoglobin 31.5 pg (27.0-33.0); Mean Corpuscular Volume 90.9 fL (80.0-98.0); Mean Platelet Volume 10.5 fL (9.4-12.3); Monocytes Absolute Auto 0.5 X10*3/uL (0.1-1.2); Monocytes Percent Auto 3.9 % (2-11); Neutrophils Absolute Auto 10.2 x10*3/uL (2.0-8.3); Neutrophils Percent Auto 88.1 % (45-73); Platelet Count 283 X10*3/uL (160-400); Red Blood Count 4.41 X10*6/uL (4.20-5.50); Red Cell Distribution Width 12.8 % (11.0-16.0); White Blood Count 11.5 X10*3/uL (4.8-10.8)
[2022-12-12] MEDS: Ondansetron ODT 4 MG TAB.RAPDIS TRANSLINGU (16:56)
[2022-12-12 17:00] LABS: Alanine Aminotransferase 24 U/L (0-31); Albumin Level 4.3 g/dL (3.5-5.0); Alkaline Phosphatase 84 U/L (39-117); Anion Gap 15 (12-20); Aspartate Amino Transferase 40 U/L (5-31); Bilirubin Direct 0.2 mg/dL (0.0-0.5); Bilirubin Total 0.4 mg/dL (0.0-1.0); Blood Urea Nitrogen 14 mg/dL (9-16); Calcium 9.2 mg/dL (8.4-10.2); Carbon Dioxide 20 mmol/L (22-29); Chloride 109 mmol/L (96-108); Creatinine Clr Calc Pharmacy 144.5; Estimated Glomerular Filt Rate > 60; Glucose Random 156 mg/dL (60-115); Lipase 18 U/L (8-78); Potassium 3.2 mmol/L (3.3-5.1); Sodium 141 mmol/L (135-145)
[2022-12-12 17:08] LABS: Troponin-I High Sensitivity < 2.7 ng/L (<3.5-17.0)
--- NOTE | 2022-12-12 17:34 | ECG_ITS ---
Test Reason : abd pain Blood Pressure : / mmHG Vent. Rate : 065 BPM Atrial Rate : 065 BPM P-R Int : 118 ms QRS Dur : 088 ms QT Int : 424 ms P-R-T Axes : 077 015 054 degrees QTc Int : 440 ms Normal sinus rhythm with sinus arrhythmia Normal ECG No previous ECGs available Referred By: Kayley Linares Electronically Signed By:STIVEN GOMEZ
[2022-12-12] MEDS: Ketorolac Tromethamine 30 MG/ML VIAL IVPUSH (17:37)
[2022-12-12] MEDS: diphenhydrAMINE HCL 50 MG/ML VIAL IVPUSH (17:38)
[2022-12-12] MEDS: Metoclopramide HCl 10 MG/2 ML VIAL IVPUSH (17:39)
[2022-12-12] MEDS: 0.9 % Sodium Chloride 1,000 ML 999 ML IVCONT (17:39)
[2022-12-12] MEDS: Famotidine/PF 20 MG/2 ML VIAL IVPUSH (17:39)
--- NOTE | 2022-12-12 17:40 | PC.NURSE ---
patient vomiting at bedside, c/o 10/10 abd pain, iv inserted, pt medicated per order, nurse monitoring applied nsr, vitals stable, family at bedside, call dai within reach, will continue to monitor
[2022-12-12 17:57] LABS: HCG Quantitative < 2 mIU/mL
[2022-12-12 18:17] VITALS: BP 181/74; PULSE 77; RESP 20; TEMP 37.2; O2SAT 98
--- NOTE | 2022-12-12 18:19 | PC.NURSE ---
patient sleeping, woke to verbal stimulus, security monitor nsr 80s, vss, ivf continue to run, call dai within reach, will continue to monitor.
[2022-12-12 19:11] VITALS: BP 184/76; PULSE 61; RESP 18; O2SAT 95
[2022-12-12] MEDS: Haloperidol Lactate 5 MG/ML VIAL 2.5 MG IM (19:55)
[2022-12-12 20:12] LABS: Ethanol < 10 mg/dL
== END 2022-12-12 22:50 | disposition home or self-care (01) ==
PROVIDERS: Physician Assistant Medical; Emergency Provider Emergency Medicine
DX: R11.2 Nausea with vomiting, unspecified (principal); R19.7 Diarrhea, unspecified; I49.8 Other specified cardiac arrhythmias; R10.2 Pelvic and perineal pain; Z79.899 Other long term (current) drug therapy
CPT/HCPCS: 36415; 80048; 80076; 80307; 82947; 83690; 83735; 84484; 84702; 85025; 93005; 96361; 96372; 96374; 96375; 99284; 99285; J1200; J1885; J2765

== ENCOUNTER 2022-12-30 07:55 | Outpatient (AMB) | payer SELFPAY ==
[2022-12-30 08:03] VITALS: BP 118/72; PULSE 80; O2SAT 99; BMI 31.9
--- NOTE | 2022-12-30 08:03 | A.OFFPC_ITS ---
Vital Signs 12/30/22 08:03 Height 5 ft 9 in Weight 216 lb BMI 31.9 BP 118/72 Blood Pressure Location Lt brachial Position Sitting Pulse 80 Pulse Source Pulse Oximeter Pulse Oximetry (%) 99 Oxygen Delivery Method Room Air Intake Visit Reasons: [employer] Request PE Allergies No Known Allergies Allergy (Verified 12/30/22 08:18) Tobacco use date assessed: 12/30/22 Dental Screening Dental Screen Date: 12/30/22 Did you have a dental visit in the last 12 months?: No Did you have a dental problem in the last 6 months where you did not have access to dental care?: No Was dental information given to patient?: No HPI HPI Comments History of Present Illness Details 42-year-old female new patient presents today to establish care. Past medical history significant for GERD, CHS syndrome. Patient reports was seen in the emergency room few weeks ago was diagnosed with cannabinoid hyperemesis syndrome. Patient reports she still occasionally smokes cannabis at night to help her sleep but she has cut down due to the vomiting. Patient also reports polydipsia x3 weeks, states has a family history of diabetes. Denies polyuria polyphagia will draw fasting glucose and hemoglobin A1c. Ofelia CP,palpitations,sob and syncope. [facility] obgyn. Labs scheduled, mammogram Exam: Scheduled for today. Declined treatment therapy, Moved from [place] 1 year ago pcp: Dr. Martinez [facility] Medical History Cannabinoid hyperemesis syndrome Marijuana use Surgical History (Updated 12/30/22 @ 08:21 by DAMON Irby) H/O: hysterectomy History of cholecystectomy Family History Mother No problems noted. Father No problems noted. Sister No problems noted. Sister No problems noted. Brother Diabetes Stroke Son No problems noted. Daughter No problems noted. Social History (Updated 12/30/22 @ 08:22 by DAMON Irby) Housing: Apartment Alcohol intake: current Alcohol intake frequency: a few times a month Patient Tobacco Use Status: Current everyday Tobacco user Tobacco use type: Cigarette Cigarettes Per Day: 7 e-Cigarette/Vaping Use: Never Used Second Hand Smoke Exposure: No Substance Use Type: Marijuana Current occupational status: employed Cognitive needs: No Hearing needs: No Vision needs: Yes Questionnaire PHQ-9 Over the last 2 weeks, how often have you been bothered by any of the following problems? 1. Little interest or pleasure in doing things: more than half the days 2. Feeling down, depressed, or hopeless: more than half the days 3. Trouble falling or staying asleep, or sleeping too much: more than half the days 4. Feeling tired or having little energy: not at all 5. Poor appetite or overeating: several days 6. Feeling bad about yourself - or that you are a failure or have let yourself or your family down: not at all 7. Trouble concentrating on things, such as reading the newspaper or watching television: not at all 8. Moving or speaking so slowly that other people could have noticed. Or the opposite - being so fidgety or restless that you have been moving around a lot more than usual: not at all 9. Thoughts that you would be better off or of hurting yourself in some way: not at all Total score: 7 Depression Screening Interpretation: Positive Depression Screening Done: Yes 18280 - PHQ-9 Billing: Yes Source: Developed by Drs. Naveen Yung, Emily Goetz, Amari Spivey and colleagues, with an educational zack from [employer]. Thrive Questionnaire Date Thrive assessed: 12/30/22 I am a: Patient What is your living situation today?: I have a steady place to live Within the past 12 months, did the food you bought not last and you didn't have the money to get more?: Never true Within the past 12 months, did you worry whether your food would run out before you got money to buy more?: Never true Do you have trouble paying for medicines?: No Do you have trouble getting transportation to medical appointments?: No Do you have trouble paying your heating and electricity bill?: No Do you have trouble taking care of your child, family member or friend?: No Do you have trouble with day-to-day activities such as bathing, preparing meals, shopping, managing finances, etc.?: No Are you currently unemployed and looking for a job?: No Are you interested in more education?: No Currently or been in a relationship where the following occur: no concerns reported AUDIT C Alcohol Use Questionnaire (AUDIT-C) 1. How often do you have a drink containing alcohol?: 2-4 times a month 2. How many drinks containing alcohol do you have on a typical day when you are drinking?: 3 or 4 3. How often do you have six or more drinks on one occasion?: Never Total Score: 3 FRANKY-7 AMB Questionnaire FRANKY-7 Date FRANKY - 7 assessed: 12/30/22 Feeling nervous, anxious, or on edge: 3 = Nearly every day Not being able to stop or control worryin = More than half the days Worrying too much about different things: 2 = More than half the days Trouble relaxin = Nearly every day Being so restless that it is hard to sit still: 0 = Not at all Becoming easily annoyed or irritable: 3 = Nearly every day Feeling afraid as if something awful might happen: 0 = Not at all Total FRANKY-7 score (0-4 normal; 5-9 mild; 10-14 moderate; 15-21 severe): 13 Source: Developed by Drs. Naveen Yung, Emily Goetz, Amari Spivey and colleagues, with an educational zack from [employer]. FRANKY-7 Assessment Billing FRANKY-7 Assessment Tool: FRANKY-7 Assessment 24038 Review of Systems Const Denies chills, Denies fatigue, Denies fever(s) and Denies poor appetite Eyes Denies no additional complaints ENT Reports Normal hearing present Card Denies chest pain, Denies syncope, Denies rapid heart rate and Denies dyspnea Resp Denies cough and Denies dyspnea GI Denies change in stool character, Denies constipation, Denies diarrhea, Denies nausea and Denies vomiting Denies urinary frequency, Denies dysuria and Denies urinary urgency Neuro Reports Normal hearing present, Denies confusion and Denies syncope Psych Denies confusion Endo Denies fatigue Physical exam (Primary Care) Vital Signs: Last Vital Signs Pulse 80 12/30/22 08:03 BP 118/72 12/30/22 08:03 Pulse Ox 99 12/30/22 08:03 Oxygen Delivery Method Room Air 12/30/22 08:03 BMI result Body Mass Index 31.9 Tobacco/Smoking Status: Tobacco use Status Tobacco use date assessed 12/30/22 12/30/22 08:13 Patient Tobacco Use Status Current everyday Tobacco 12/30/22 08:13 Tobacco use type Cigarette 12/30/22 08:13 e-Cigarette/Vaping Use Never Used 12/30/22 08:13 PHQ-9: PHQ-9 Score PHQ-9: Total score 7 12/30/22 08:13 Depression Screening Interpretation: Positive Thrive Assessment: Date of Thrive Assessment Date Thrive assessed 12/30/22 12/30/22 08:13 Currently or been in a relationship where the following occur: no concerns reported Const General: No confusion Orientation/consciousness: No confusion HENMT Head: Yes normocephalic and Yes atraumatic Ears: external ears normal and TM's normal bilaterally General nose exam: Normal external nose present and Normal nasal mucous membranes and turbinates present Face and sinus: Yes normal facial exam and Yes sinuses nontender Mouth: moist mucous membranes Throat: Yes tonsils normal Eyes Conjunctivae: conjunctivae normal Sclerae: sclerae normal Pupils: Equal, round and reactive pupils present and Pupils normal by confrontation EOM: EOMs intact bilaterally Direct Ophthalmoscopy: normal light reflex Neck Neck: Yes no lymphadenopathy and Yes supple Thyroid: Thyroid normal Chest Chest palpation & inspection: normal inspection of the chest Resp Effort & Inspection: normal respiratory effort Auscultation: clear to auscultation bilaterally, no crackles, no rhonchi and no wheezes Cardio Rate: regular rate Rhythm: regular rhythm Peripheral pulses: radial pulses present and dorsalis pedis present GI Inspection: Yes normal to inspection Palpation (GI): Soft to palpation, nontender and No hepatosplenomegaly present Auscultation: normoactive bowel sounds Skin General skin exam: no rashes or lesions noted Neuro General: No confusion Cranial nerves: Yes Equal, round and reactive pupils present and Yes Normal hearing present Cognition (Neuro): normal cognition Gait exam (Neuro): Normal gait present Motor exam (neuro): 5/5 motor strength present throughout Deep tendon reflexes (DTR's): Right brachioradialis reflex intensity grade: 2+, Left brachioradialis reflex intensity grade: 2+, Right patellar reflex intensity grade: 2+ and Left patellar reflex intensity grade: 2+ Extrem General: No edema Assessment and Plan Assessment & Plan (1) Polydipsia: Code(s): R63.1 - Polydipsia Plan: Fasting glucose and hemoglobin A1c ordered. (2) Physical exam, annual: Code(s): Z00.00 - Encounter for general adult medical examination without abnormal findings Plan: Follow up in 1 year Plan Follow up in 1 year or sooner if needed. Orders: Orders Complete Blood Count Auto Diff Today Z13.0 - Encounter for screening for diseases of the blood and blood-forming organs and certain disorders involving the immune mechanism TSH reflex Free T4 Today Z13.29 - Encounter for screening for other suspected endocrine disorder Vitamin D 25-OH Total Today Z13.21 - Encounter for screening for nutritional disorder Comprehensive [place]. Panel Fast Today R63.1 - Polydipsia Lipid Panel Today Z13.220 - Encounter for screening for lipoid disorders Hemoglobin A1c Today R63.1 - Polydipsia Coding Level of Care Code New Pt Prev Care 40-64y(26116) Diagnoses Polydipsia R63.1 Physical exam, annual Z00.00 Additional Codes FRANKY-7 Assessment Billing - FRANKY-7 Assessment Tool: FRANKY-7 Assessment 00060 ([id number])
== END 2022-12-30 08:36 | disposition home or self-care (01) ==
PROVIDERS: PCP Internal Medicine; Visit Provider Nurse Practitioner Family
DX: R63.1 Polydipsia (principal); Z00.00 Encounter for general adult medical examination without abnormal findings
CPT/HCPCS: 99386

== ENCOUNTER 2022-12-31 07:59 | Outpatient (REF) | payer OTHER, SELFPAY ==
[2022-12-31 08:29] LABS: MANUAL DIFF FLAG NO
[2022-12-31 08:55] LABS: Basophils Absolute Auto 0.1 X10*3/uL (0.0-0.2); Basophils Percent Auto 0.9 % (0-2); Eosinophils Absolute Auto 0.2 X10*3/uL (0.0-0.4); Eosinophils Percent Auto 3.3 % (0-4); Hematocrit 42.7 % (37.0-47.0); Hemoglobin 14.4 g/dl (12.0-16.0); Imm Gran Abs Auto 0.02 X10*3/uL (0.00-0.03); Imm Gran Pct Auto 0.3 % (0.0-0.4); Lymphocytes Absolute Auto 1.7 X10*3/uL (1.2-4.9); Mean Corpuscular HGB Conc 33.7 g/dl (31.0-35.0); Mean Corpuscular Hemoglobin 31.6 pg (27.0-33.0); Mean Corpuscular Volume 93.6 fL (80.0-98.0); Mean Platelet Volume 10.6 fL (9.4-12.3); Monocytes Absolute Auto 0.6 X10*3/uL (0.1-1.2); Monocytes Percent Auto 8.5 % (2-11); Neutrophils Absolute Auto 4.2 x10*3/uL (2.0-8.3); Platelet Count 311 X10*3/uL (160-400); Red Blood Count 4.56 X10*6/uL (4.20-5.50); White Blood Count 6.7 X10*3/uL (4.8-10.8)
[2022-12-31 09:01] LABS: Estimated Average Glucose 85 mg/dL; Hemoglobin A1C 87.0188 umol/L; Hemoglobin A1c % 4.6 % (<6.0)
[2022-12-31 09:30] LABS: Alanine Aminotransferase 14 U/L (0-31); Albumin Level 4.2 g/dL (3.5-5.0); Alkaline Phosphatase 77 U/L (39-117); Anion Gap 14 (12-20); Aspartate Amino Transferase 26 U/L (5-31); Bilirubin Total 0.5 mg/dL (0.0-1.0); Blood Urea Nitrogen 13 mg/dL (9-16); Calcium 9.7 mg/dL (8.4-10.2); Carbon Dioxide 25 mmol/L (22-29); Chloride 105 mmol/L (96-108); Cholesterol 173 mg/dL (<200); Estimated Glomerular Filt Rate > 60; Glucose Fasting 90 mg/dL (60-99); HDL Cholesterol 45 mg/dL (>40); LDL Cholesterol Calculated 119 mg/dL (<100); Potassium 4.6 mmol/L (3.3-5.1); Sodium 139 mmol/L (135-145); Total Protein 7.6 g/dL (6.5-8.0); Triglycerides 49 mg/dL (<150)
[2022-12-31 09:49] LABS: TSH reflex Free T4 1.23 uIU/mL (0.32-4.0)
== END 2022-12-31 08:00 | disposition home or self-care (01) ==
LOC: HO.LAB 07:59
PROVIDERS: PCP Internal Medicine; Visit Provider Nurse Practitioner Family
DX: R63.1 Polydipsia (principal); Z13.21 Encounter for screening for nutritional disorder; Z13.29 Encounter for screening for other suspected endocrine disorder; Z13.220 Encounter for screening for lipoid disorders; Z13.0 Encounter for screening for diseases of the blood and blood-forming organs and certain disorders involving the immune mechanism; E55.9 Vitamin D deficiency, unspecified; F41.9 Anxiety disorder, unspecified
CPT/HCPCS: 36415; 80053; 80061; 82306; 83036; 84443; 85025

== ENCOUNTER 2023-07-17 14:16 | Outpatient (AMB) | payer OTHER, SELFPAY ==
[2023-07-17 14:19] VITALS: BP 122/70; BMI 32.8
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
== END 2023-07-17 14:50 | disposition home or self-care (01) ==
PROVIDERS: PCP Nurse Practitioner Family; Visit Provider Internal Medicine
DX: M54.50 Low back pain, unspecified (principal); F32.1 Major depressive disorder, single episode, moderate; R19.7 Diarrhea, unspecified; M54.2 Cervicalgia; J32.9 Chronic sinusitis, unspecified; R68.84 Jaw pain
CPT/HCPCS: 99214

== ENCOUNTER 2023-07-29 10:21 | Outpatient (REF) | payer OTHER, SELFPAY ==
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
== END 2023-07-29 10:22 | disposition home or self-care (01) ==
LOC: HO.XRAY 10:21
PROVIDERS: PCP Internal Medicine; Visit Provider Internal Medicine
DX: M54.2 Cervicalgia (principal); M54.50 Low back pain, unspecified; R68.84 Jaw pain
CPT/HCPCS: 70110; 70220; 72040; 72100

== ENCOUNTER 2023-08-25 14:31 | Outpatient (AMB) | payer OTHER, SELFPAY ==
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
[2023-08-25 14:38] VITALS: BP 107/55; PULSE 83; O2SAT 99; BMI 29.1
== END 2023-08-25 15:16 | disposition home or self-care (01) ==
PROVIDERS: PCP Internal Medicine; Referring Provider Internal Medicine; Visit Provider Nurse Practitioner Family
DX: M62.838 Other muscle spasm (principal); M47.812 Spondylosis without myelopathy or radiculopathy, cervical region; M47.817 Spondylosis without myelopathy or radiculopathy, lumbosacral region; M54.16 Radiculopathy, lumbar region; M51.36 Other intervertebral disc degeneration, lumbar region
CPT/HCPCS: 99204

== ENCOUNTER → 2023-08-25 14:31 | Outpatient (BNVA) | payer OTHER, SELFPAY | PROVIDERS: PCP Internal Medicine; Referring Provider Internal Medicine; Visit Provider Nurse Practitioner Family | DX: M62.838 Other muscle spasm (principal); M47.812 Spondylosis without myelopathy or radiculopathy, cervical region; M47.27 Other spondylosis with radiculopathy, lumbosacral region; M51.36 Other intervertebral disc degeneration, lumbar region | CPT/HCPCS: 99202 ==

== ENCOUNTER 2023-08-28 10:16 | Emergency (ER) | payer OTHER, SELFPAY ==
--- NOTE | ~2023-08-28 | CT_ITS ---
EXAMINATION: CT ABDOMEN AND PELVIS WITH CONTRAST CLINICAL INFORMATION: Abdominal pain. Nausea and vomiting. COMPARISON: 12/12/2021 TECHNIQUE: Multidetector volumetric images were obtained from the superior aspect of the liver through the pubic symphysis following administration 85 mL of Omnipaque 350 intravenous contrast. Sagittal and coronal reformatted images were obtained on the technologist's workstation. Oral contrast: No This CT examination was performed using dose optimization techniques as appropriate, variously including the following: *Automated exposure control *Adjustment of mA and/or kV according to patient size (this includes techniques or standardized protocols for targeted exams where dose is matched to indication/reason for exam; i.e. extremities or head) *Use of iterative reconstruction technique DLP: 759 mGy-cm FINDINGS: LUNG BASES: No pleural or pericardial effusion. LIVER, GALLBLADDER, AND BILIARY TREE: The liver is normal in size and contour. Possible focal fatty infiltration along the falciform ligament. No suspicious hepatic lesion or biliary ductal dilatation is present. The gallbladder is surgically absent. PANCREAS: No ductal dilatation. SPLEEN: Not enlarged. ADRENAL GLANDS: No adrenal mass. KIDNEYS AND URETERS: The kidneys are normal in size, shape, and attenuation. No hydronephrosis, hydroureter, or calculi seen. No perinephric stranding. BLADDER: Decompressed. GASTROINTESTINAL TRACT: There is wall thickening of mid small bowel loops in the left upper abdomen. No small bowel obstruction. No free fluid in the abdomen or pelvis. ABDOMINAL WALL: No significant hernia is appreciated. LYMPH NODES: No bulky lymphadenopathy. VASCULAR: Normal caliber abdominal aorta. PELVIC VISCERA: Uterus is surgically absent. There is wall thickening of the cervix with surrounding inflammatory change. 2.5 x 2.3 cm hypodensity in the right ovary. OSSEOUS STRUCTURES: No destructive bone lesions. CT/CT abdomen pelvis w IV con IMPRESSION: Mid small bowel wall thickening. This may represent an enteritis. Infectious and inflammatory etiologies should be considered. Wall thickening of the cervix is surrounding inflammatory change. Advise correlation with cervical motion tenderness on physical examination in the setting of possible infection. 2.5 x 2.3 cm right ovarian hypodensity. Findings are overwhelmingly likely to represent a normal ovarian follicle. No follow-up imaging recommended.
[2023-08-28 10:46] VITALS: BP 150/63; PULSE 77; RESP 16; TEMP 35.8; O2SAT 95; BMI 31.3
--- NOTE | 2023-08-28 10:59 | ED.NAVMDI ---
HPI - Nausea/Vomiting/Diarrhea General Chief complaint: Nausea/Vomiting/Diarrhea Stated complaint: vomiting Time Seen by Provider: 08/28/23 12:47 History of Present Illness ED Provider: Dr. Segura HPI Narrative: 42 y/o F patient; PMH cyclic vomiting syndrome; presents from home reporting nausea/vomiting, diarrhea, and diffuse abdominal discomfort. The patient has previously been seen in this emergency department for similar symptoms which she states is due to her cyclic vomiting. She denies any chance of . Hx cholecystectomy. Endorses daily marijuana use. Related Data Previous Rx's ?Medication ?Instructions ?Recorded hydroxyzine HCl 25 mg tablet 25 mg PO BID PRN itching #30 tabs 01/02/23 nabumetone 750 mg tablet 750 mg PO BID PRN pain 30 days #60 07/17/23 tabs sertraline 25 mg tablet 25 mg PO DAILY 90 days #90 tabs 07/17/23 sulfamethoxazole 800 1 tab PO BID 7 days #14 tabs 07/17/23 mg-trimethoprim 160 mg tablet (Bactrim DS) baclofen 10 mg tablet 10 mg PO BID PRN muscle spasm 30 08/25/23 days #60 tabs lidocaine 5 % topical patch 1 patch topical DAILY pain 30 days 08/25/23 #30 ea ondansetron 4 mg disintegrating 4 mg PO Q8H PRN nausea and 08/28/23 tablet vomiting #14 tabs Allergies Allergy/AdvReac Type Severity Reaction Status Date / Time No Known Allergies Allergy Verified 08/28/23 10:51 Review of Systems Review of Systems: Yes all other systems are reviewed and are negative [facility] Past Medical History Attestation statement: The following information was validated with the patient. Source: old records reviewed Medical History Cannabinoid hyperemesis syndrome Marijuana use Surgical History H/O: hysterectomy History of cholecystectomy Family History Family History Mother No problems noted. Father No problems noted. Sister No problems noted. Sister No problems noted. Brother Diabetes Stroke Son No problems noted. Daughter No problems noted. Social History Social History Housing: Apartment Alcohol intake: current Alcohol intake frequency: holidays/special occasions only Alcohol type: beer Patient Tobacco Use Status: Current everyday Tobacco user Tobacco use type: Cigarette Cigarettes Per Day: 7 e-Cigarette/Vaping Use: Never Used Second Hand Smoke Exposure: No Substance Use Type: Marijuana Advance Directives: No Advance Directives Information Provided: No service: No Current occupational status: employed Current occupational exposures/hazards: No Cognitive needs: No Hearing needs: No Vision needs: Yes Physical Exam Vital Signs: Vital Signs: Last Vital Signs Temp 98.3 F 08/28/23 18:18 Pulse 77 08/28/23 18:18 Resp 16 08/28/23 18:18 BP 148/76 H 08/28/23 18:18 Pulse Ox 97 08/28/23 18:18 O2 Del Method Room Air 08/28/23 18:18 BMI result Body Mass Index 31.3 Patient is afebrile, mildly hypertensive. Const: Other: Patient is loudly dry retching HEENT: Head: Yes normal to inspection and Yes atraumatic Eyes: Pupils: Equal, round and reactive pupils present EOM: EOMs intact bilaterally Neck: Neck: Yes normal visual inspection, Yes supple and Yes tender Chest: Chest palpation & inspection: normal inspection of the chest and normal palpation of entire chest wall Resp: Effort & Inspection: normal respiratory effort, able to speak in complete sentences, no cough and no respiratory distress Auscultation: clear to auscultation bilaterally Cardio: Rate: regular rate Rhythm: regular rhythm Peripheral pulses: Peripheral pulses 2+ throughout GI: Inspection: Yes normal to inspection, No Abdominal wall edema and No distended Palpation (GI): Soft to palpation, not firm, nontender, no guarding and not rigid Auscultation: normal bowel sounds : General: Yes no CVA tenderness Back/Spine/Pelvis: Back: no CVA tenderness Neuro: Cranial nerves: Yes Equal, round and reactive pupils present Course Course Course Narrative: This is a rapid medical exam completed by Catherine WILLISN: Additional HPI, ROS, PE not included below will be deferred to primary provider. Pt woke with morning with abdominal pain, nausea, vomiting, and diarrhea. Reports feeling weak. Zofran ODT given in triage Plan: Labs, UA, upreg Reevaluation(s) Reevaluation #1: Patient is afebrile and hemodynamically stable. Patient denies any chance of . Has hx hysterectomy. Provided IM Haldol and IV Compazine. Providing 1L IVF. Labs reviewed. No significant leukocytosis. No significant evidence of dehydration. Following medication patient with one further episode of dry retching. However reporting continued abdominal discomfort and nausea. Providing Reglan and Benadryl. Ordered for CT Abdomen/Pelvis w IV Contrast. CT with concern for enteritis. Also with wall thickening of the cervix. Confirmed with patient she does not have dysuria, hematuria, frequency. Pending UA. Added gonorrhea/chlamydia/HIV/syphilis studies. UA negative. Patient tolerating PO without difficulty. Plan: Discharge to home with PCP follow up Return precautions given Discussed plan for follow up call if STD testing positive Medications Administered Discontinued Medications Generic Name Dose Route Start Last Admin Trade Name Freq PRN Reason Stop Dose Admin Diphenhydramine HCl 25 mg 08/28/23 16:06 08/28/23 16:24 Diphenhydramine Hcl 50 Mg/Ml Vial IVPUSH 08/28/23 16:07 25 mg ONCE ONE Administration Haloperidol Lactate 5 mg 08/28/23 12:51 08/28/23 13:10 Haloperidol Lactate 5 Mg/Ml Vial IM 08/28/23 12:52 5 mg ONCE ONE Administration Sodium Chloride 1,000 mls @ 999 mls/hr 08/28/23 13:00 08/28/23 15:14 Ns IV 08/28/23 14:00 Infused .Q1H1M DEIRDRE Infusion Sodium Chloride 1,000 mls @ 999 mls/hr 08/28/23 16:15 08/28/23 16:18 Ns IV 08/28/23 17:15 999 mls/hr .Q1H1M DEIRDRE Administration Iohexol 85 ml 08/28/23 16:43 08/28/23 16:43 Iohexol 350 Mg/Ml 100 Ml Infus..Btl IV 08/28/23 16:44 85 ml ONCE ONE Administration Metoclopramide HCl 10 mg 08/28/23 16:06 08/28/23 16:22 Metoclopramide Hcl 10 Mg/2 Ml Vial IVPUSH 08/28/23 16:07 10 mg ONCE ONE Administration Ondansetron HCl 8 mg 08/28/23 10:58 08/28/23 11:01 Ondansetron Odt 8 Mg Tab.Rapdis TRANSLINGU 08/28/23 10:59 8 mg ONCE ONE Administration Prochlorperazine Edisylate 10 mg 08/28/23 12:51 08/28/23 13:10 Prochlorperazine Edisylate 10 Mg/2 Ml Vial IVPUSH 08/28/23 12:52 10 mg ONCE ONE Administration Medical Decision Making Lab Data 08/28/23 11:14 08/28/23 11:14 Labs: Lab Results 08/28/23 08/28/23 Range/Units 11:14 19:31 WBC 11.2 H (4.8-10.8) X10*3/uL RBC 4.64 (4.20-5.50) X10*6/uL Hgb 14.9 (12.0-16.0) g/dl Hct 41.5 (37.0-47.0) % MCV 89.4 (80.0-98.0) fL MCH 32.1 (27.0-33.0) pg MCHC 35.9 H (31.0-35.0) g/dl RDW 12.9 (11.0-16.0) % Plt Count 348 (160-400) X10*3/uL MPV 10.3 (9.4-12.3) fL Immature Gran % (Auto) 0.6 H (0.0-0.4) % Neut % (Auto) 69.7 (45-73) % Lymph % (Auto) 21.0 (20-40) % [place] % (Auto) 7.2 (2-11) % Eos % (Auto) 0.9 (0-4) % Baso % (Auto) 0.6 (0-2) % Lymph # (Auto) 2.3 (1.2-4.9) X10*3/uL [place] # (Auto) 0.8 (0.1-1.2) X10*3/uL Eos # (Auto) 0.1 (0.0-0.4) X10*3/uL Baso # (Auto) 0.1 (0.0-0.2) X10*3/uL Abs Immat Gran (auto) 0.07 H (0.00-0.03) X10*3/uL Absolute Neuts (auto) 7.8 (2.0-8.3) x10*3/uL Absolute Nucleated RBC 0.000 (0.0-0.012) X10*3/uL Nucleated RBC % (auto) 0.0 (0.0-0.2) /100WBC Sodium 142 (135-145) mmol/L Potassium 3.3 (3.3-5.1) mmol/L Chloride 106 (96-108) mmol/L Carbon Dioxide 24 (22-29) mmol/L Anion Gap 15 (12-20) BUN 11 (9-16) mg/dL Creatinine 0.74 (0.5-1.4) mg/dL Estim Creat Clear Calc 115.7 Estimated GFR > 60 Random Glucose 149 H (60-115) mg/dL Calcium 9.7 (8.4-10.2) mg/dL Magnesium 1.6 (1.6-2.6) mg/dL Total Bilirubin 0.4 (0.0-1.0) mg/dL AST 27 (5-31) U/L ALT 13 (0-31) U/L Alkaline Phosphatase 84 (39-117) U/L Total Protein 7.7 (6.5-8.0) g/dL Albumin 4.2 (3.5-5.0) g/dL Lipase 23 (8-78) U/L Urine Color Yellow Urine Appearance Clear Urine pH >= 9.0 (5.0-9.0) Ur Specific [place] >= 1.030 H (1.005-1.025) Urine Protein Negative (Neg-Trace) mg/dL Urine Glucose (UA) Negative (Negative) mg/dL Urine Ketones 15 (Negative) mg/dL Urine Blood Trace H (Negative) Urine Nitrite Negative (Negative) Ur Leukocyte Esterase Negative (Negative) Urine RBC 3-5 H (0-2) /HPF Urine WBC 0-5 (0-5) /HPF Ur Squamous Epith Cells 0-2 (0-2) /HPF Urine Bacteria None Seen (None Seen) Hyaline Casts 0-2 (0-2) /LPF Radiology Impression Discussion of test interpretation with radiology: I have reviewed the radiologist's reading. Radiologist Impression: EXAMINATION: CT ABDOMEN AND PELVIS WITH CONTRAST CLINICAL INFORMATION: Abdominal pain. Nausea and vomiting. COMPARISON: 12/12/2021 TECHNIQUE: Multidetector volumetric images were obtained from the superior aspect of the liver through the pubic symphysis following administration 85 mL of Omnipaque 350 intravenous contrast. Sagittal and coronal reformatted images were obtained on the technologist's workstation. Oral contrast: No This CT examination was performed using dose optimization techniques as appropriate, variously including the following: *Automated exposure control *Adjustment of mA and/or kV according to patient size (this includes techniques or standardized protocols for targeted exams where dose is matched to indication/reason for exam; i.e. extremities or head) *Use of iterative reconstruction technique DLP: 759 mGy-cm FINDINGS: LUNG BASES: No pleural or pericardial effusion. LIVER, GALLBLADDER, AND BILIARY TREE: The liver is normal in size and contour. Possible focal fatty infiltration along the falciform ligament. No suspicious hepatic lesion or biliary ductal dilatation is present. The gallbladder is surgically absent. PANCREAS: No ductal dilatation. SPLEEN: Not enlarged. ADRENAL GLANDS: No adrenal mass. KIDNEYS AND URETERS: The kidneys are normal in size, shape, and attenuation. No hydronephrosis, hydroureter, or calculi seen. No perinephric stranding. BLADDER: Decompressed. GASTROINTESTINAL TRACT: There is wall thickening of mid small bowel loops in the left upper abdomen. No small bowel obstruction. No free fluid in the abdomen or pelvis. ABDOMINAL WALL: No significant hernia is appreciated. LYMPH NODES: No bulky lymphadenopathy. VASCULAR: Normal caliber abdominal aorta. PELVIC VISCERA: Uterus is surgically absent. There is wall thickening of the cervix with surrounding inflammatory change. 2.5 x 2.3 cm hypodensity in the right ovary. OSSEOUS STRUCTURES: No destructive bone lesions. CT/CT abdomen pelvis w IV con IMPRESSION: Mid small bowel wall thickening. This may represent an enteritis. Infectious and inflammatory etiologies should be considered. Wall thickening of the cervix is surrounding inflammatory change. Advise correlation with cervical motion tenderness on physical examination in the setting of possible infection. 2.5 x 2.3 cm right ovarian hypodensity. Findings are overwhelmingly likely to represent a normal ovarian follicle. No follow-up imaging recommended. Discharge Plan Discharge Clinical Impression: Vomiting Patient Disposition: Home, Self-Care Instructions: Cyclic Vomiting Syndrome (ED) Additional Instructions: As we discussed, you were seen today for nausea/vomiting/diarrhea. You received nausea medication and IV fluids. Recommend you follow up with your PCP within the next 24 - 48 hours for a re-evaluation. A prescription for a nausea medication called (Ramirez) was sent to your pharmacy. Take this every 8 hours as needed for nausea. Return to the emergency department for: Worsening abdominal pain Inability to drink water due to nausea/vomiting Fever Prescriptions: New ondansetron 4 mg tablet,disintegrating 4 mg PO Q8H PRN (Reason: nausea and vomiting) Qty: 14 0RF No Action hydroxyzine HCl 25 mg tablet 25 mg PO BID PRN (Reason: itching) Qty: 30 0RF sulfamethoxazole-trimethoprim [Bactrim DS] 800-160 mg tablet 1 tab PO BID 7 Days Qty: 14 0RF sertraline 25 mg tablet 25 mg PO DAILY 90 Days Qty: 90 0RF nabumetone 750 mg tablet 750 mg PO BID PRN (Reason: pain) 30 Days Qty: 60 0RF baclofen 10 mg tablet 10 mg PO BID PRN (Reason: muscle spasm) 30 Days Qty: 60 0RF lidocaine 5 % adhesive patch,medicated 1 patch topical DAILY 30 Days Qty: 30 0RF Print Language: Bur[place]ian
[2023-08-28] MEDS: Ondansetron ODT 8 MG TAB.RAPDIS TRANSLINGU (11:01)
[2023-08-28 11:18] LABS: MANUAL DIFF FLAG NO
[2023-08-28 11:20] LABS: Basophils Absolute Auto 0.1 X10*3/uL (0.0-0.2); Basophils Percent Auto 0.6 % (0-2); Eosinophils Absolute Auto 0.1 X10*3/uL (0.0-0.4); Eosinophils Percent Auto 0.9 % (0-4); Hematocrit 41.5 % (37.0-47.0); Hemoglobin 14.9 g/dl (12.0-16.0); Imm Gran Abs Auto 0.07 X10*3/uL (0.00-0.03); Imm Gran Pct Auto 0.6 % (0.0-0.4); Lymphocytes Absolute Auto 2.3 X10*3/uL (1.2-4.9); Mean Corpuscular HGB Conc 35.9 g/dl (31.0-35.0); Mean Corpuscular Hemoglobin 32.1 pg (27.0-33.0); Mean Corpuscular Volume 89.4 fL (80.0-98.0); Mean Platelet Volume 10.3 fL (9.4-12.3); Monocytes Absolute Auto 0.8 X10*3/uL (0.1-1.2); Monocytes Percent Auto 7.2 % (2-11); Neutrophils Absolute Auto 7.8 x10*3/uL (2.0-8.3); Neutrophils Percent Auto 69.7 % (45-73); Platelet Count 348 X10*3/uL (160-400); Red Blood Count 4.64 X10*6/uL (4.20-5.50); Red Cell Distribution Width 12.9 % (11.0-16.0); White Blood Count 11.2 X10*3/uL (4.8-10.8)
[2023-08-28 11:40] LABS: Alanine Aminotransferase 13 U/L (0-31); Albumin Level 4.2 g/dL (3.5-5.0); Alkaline Phosphatase 84 U/L (39-117); Anion Gap 15 (12-20); Aspartate Amino Transferase 27 U/L (5-31); Bilirubin Total 0.4 mg/dL (0.0-1.0); Blood Urea Nitrogen 11 mg/dL (9-16); Calcium 9.7 mg/dL (8.4-10.2); Carbon Dioxide 24 mmol/L (22-29); Chloride 106 mmol/L (96-108); Creatinine Clr Calc Pharmacy 115.7; Estimated Glomerular Filt Rate > 60; Glucose Random 149 mg/dL (60-115); Magnesium 1.6 mg/dL (1.6-2.6); Potassium 3.3 mmol/L (3.3-5.1); Sodium 142 mmol/L (135-145); Total Protein 7.7 g/dL (6.5-8.0)
[2023-08-28 13:08] LABS: Lipase 23 U/L (8-78)
[2023-08-28] MEDS: Prochlorperazine Edisylate 10 MG/2 ML VIAL IVPUSH (13:10)
[2023-08-28] MEDS: Haloperidol Lactate 5 MG/ML VIAL IM ×2 (13:10→20:58)
[2023-08-28] MEDS: 0.9 % Sodium Chloride 1,000 ML 999 ML IV ×2 (13:10→16:18)
[2023-08-28] MEDS: Metoclopramide HCl 10 MG/2 ML VIAL IVPUSH (16:22)
[2023-08-28] MEDS: diphenhydrAMINE HCL 50 MG/ML VIAL 25 MG IVPUSH (16:24)
[2023-08-28] MEDS: iohexoL 350 MG/ML 100 ML INFUS..BTL 85 ML IV (16:43)
[2023-08-28 18:18] VITALS: BP 148/76; PULSE 77; RESP 16; TEMP 36.8; O2SAT 97
[2023-08-28 19:40] LABS: Appearance Urine Clear; Color Urine Yellow; Glucose Urine UA Negative (Negative); Leukocyte Esterase Urine Negative (Negative); Nitrite Urine Negative (Negative); PH >= 9.0 (5.0-9.0); Specific Gravity - Urine >= 1.030 (1.005-1.025); UMIC TRIGGER UACC YES; Urine Blood Trace (Negative); Urine Ketones 15 mg/dL (Negative); Urine Protein Negative (Neg-Trace)
[2023-08-28 19:42] LABS: Bacteria Urine None Seen (None Seen); Hyaline Casts Urine 0-2 /LPF (0-2); Squamous Epithelial Cell Urine 0-2 /HPF (0-2); WBC Urine 0-5 /HPF (0-5)
[2023-08-28 19:54] VITALS: BP 146/74; PULSE 86; RESP 16; TEMP 36.4; O2SAT 96
--- NOTE | 2023-08-28 20:42 | ECG_ITS ---
Test Reason : QTC Blood Pressure : / mmHG Vent. Rate : 075 BPM Atrial Rate : 075 BPM P-R Int : 126 ms QRS Dur : 084 ms QT Int : 402 ms P-R-T Axes : 065 020 049 degrees QTc Int : 448 ms Normal sinus rhythm Normal ECG No previous ECGs available Referred By: Lila Segura Electronically Signed By:Faheem Gagnon
[2023-08-28] MEDS: Ondansetron ODT 4 MG TAB.RAPDIS TRANSLINGU (20:58)
[2023-08-28 21:09] VITALS: BP 146/74; PULSE 86; RESP 16; TEMP 36.4; O2SAT 96
[2023-08-29 03:38] LABS: Syphilis Screen Nonreactive (Nonreactive)
[2023-08-29 03:50] LABS: CT PCR NOT DETECTED (Not Detect.); NG PCR NOT DETECTED (Not Detect.)
[2023-08-29 03:56] LABS: HIV AB/AG Nonreactive (Nonreactive); HIV Num 1 0.05 S/CO (0.00-0.99)
== END 2023-08-28 21:10 | disposition home or self-care (01) ==
PROVIDERS: Nurse Practitioner Family; Emergency Provider Emergency Medicine; PCP Internal Medicine
DX: R11.2 Nausea with vomiting, unspecified (principal); R10.2 Pelvic and perineal pain; F12.10 Cannabis abuse, uncomplicated; Z79.899 Other long term (current) drug therapy; F17.210 Nicotine dependence, cigarettes, uncomplicated
CPT/HCPCS: 0353U; 36415; 74177; 80053; 81001; 83690; 83735; 85025; 86780; 87389; 93005; 96361; 96372; 96374; 96375; 99284; J0737; J1200; J1630; J2765; Q9967

== ENCOUNTER → 2023-08-28 20:42 | Outpatient (BNV) | payer OTHER, SELFPAY | PROVIDERS: Emergency Provider Emergency Medicine; PCP Internal Medicine; Visit Provider Internal Medicine Cardiovascular Disease | DX: I45.81 Long QT syndrome (principal) | CPT/HCPCS: 93010 ==

== ENCOUNTER 2023-09-21 06:24 | Outpatient (REF) | payer OTHER, SELFPAY | END 2023-09-21 06:25 | disposition home or self-care (01) | LOC: CF 06:24 | PROVIDERS: Visit Provider Internal Medicine | DX: Z13.89 Encounter for screening for other disorder (principal) ==

== ENCOUNTER 2023-09-28 06:28 | Outpatient (REF) | payer OTHER, SELFPAY | END 2023-09-28 06:29 | disposition home or self-care (01) | LOC: CF 06:28 | PROVIDERS: Visit Provider Internal Medicine | DX: Z13.89 Encounter for screening for other disorder (principal) ==

== ENCOUNTER 2023-12-02 15:03 | Outpatient (REF) | payer OTHER, SELFPAY ==
--- NOTE | ~2023-12-02 | MR_ITS ---
MRI OF THE LUMBAR SPINE WITHOUT CONTRAST CLINICAL INFORMATION: Spondylosis without myelopathy or radiculopathy. COMPARISON: None available. TECHNIQUE: Multiplanar multisequence MR imaging of the lumbar spine obtained without contrast. FINDINGS: There are 5 nonrib-bearing lumbar-type vertebral bodies. There is moderate disc volume loss at L1-L2 and there is mild discoid loss at L2-L3 with disc desiccation at both these levels. There is no bone marrow edema. There are no acute fractures. Large anterior endplate bridging osteophyte at L2-L3. Mild Modic type II endplate signal changes at L2-L3. Conus terminates at the L1 level. There are no significant extraspinal soft tissue findings. L1-L2: There is a small annular disc bulge. Prominent dorsal epidural fat and mild narrowing of the thecal sac. There is no foraminal stenosis. L2-L3: There is a small annular disc bulge and there is mild bilateral facet arthropathy and prominent dorsal epidural fat resulting in mild narrowing of the central canal. Mild bilateral foraminal encroachment without mass effect on the exiting nerve roots. Small annular disc bulge and mild bilateral facet arthropathy. No central canal stenosis. There is mild foraminal encroachment bilaterally. L3-L4: Small annular disc bulge and mild bilateral facet arthropathy. No central canal stenosis. There is mild foraminal encroachment bilaterally. L4-L5: Diffuse annular disc bulge and moderate bilateral facet arthropathy and ligamentum flavum thickening. No central canal stenosis. There is mild foraminal encroachment bilaterally. L5-S1: Small annular disc bulge and mild bilateral facet arthropathy. No central canal stenosis and no foraminal stenosis. MR/MR lumbar spine wo con IMPRESSION: Mild to moderate lumbar spondylosis. There is no severe central canal stenosis and there is no severe foraminal stenosis within the lumbar spine. No traversing or exiting nerve root compression. Prominent dorsal epidural fat and spondylitic changes mildly narrow the central canal at the L1-L2 and L2-L3 levels. Large anterior bridging disc osteophyte complex at L2-L3. Electronically signed by: Hero Aranda MD 12/02/2023 04:09 PM EDT
== END 2023-12-02 15:04 | disposition home or self-care (01) ==
LOC: HO.MRI 15:03
PROVIDERS: PCP Internal Medicine; Visit Provider Nurse Practitioner Family
DX: M47.817 Spondylosis without myelopathy or radiculopathy, lumbosacral region (principal); M54.16 Radiculopathy, lumbar region; M51.36 Other intervertebral disc degeneration, lumbar region
CPT/HCPCS: 72148

== ENCOUNTER 2024-01-02 07:49 | Outpatient (AMB) | payer OTHER, SELFPAY ==
--- NOTE | 2024-01-02 08:21 | MHC.PC.OV ---
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 Accompanied by: Self / Same As Patient Allergies No Known Allergies Allergy (Verified 01/02/24 08:35) Medication List - Last Reconciled 01/02/24 by Odilia Oh MD baclofen 10 mg PO BID PRN hydroxyzine HCl 25 mg PO BID PRN lidocaine 5% 1 patch topical DAILY 30 days nabumetone 750 mg PO BID PRN 30 days ondansetron 4 mg PO Q8H PRN sertraline 25 mg PO DAILY 90 days Tobacco use date assessed: 01/02/24 Dental Screening Dental Screen Date: 01/02/24 Did you have a dental visit in the last 12 months?: No Did you have a dental problem in the last 6 months where you did not have access to dental care?: No Was dental information given to patient?: Patient has dentist HPI HPI Comments History of Present Illness Details This is a 43-year-old female with moderate major depression that comes for her physical exam. Depression has markedly improved with SSRIs. No chest pain or shortness on breath. I will order a mammogram. No need for Pap smears due to hysterectomy. Declines flu vaccine today. She is a smoker and was advised to quit. She is obese with a BMI of 33.8 and was advised to do diet and exercise. Complains of hemorrhoids and would like general surgery referral. PFSH Medical History Cannabinoid hyperemesis syndrome Marijuana use Surgical History H/O: hysterectomy History of cholecystectomy Family History Mother No problems noted. Father No problems noted. Sister No problems noted. Sister No problems noted. Brother Diabetes Stroke Son No problems noted. Daughter No problems noted. Social History Housing: Apartment Alcohol intake: current Alcohol intake frequency: holidays/special occasions only Alcohol type: beer Patient Tobacco Use Status: Current everyday Tobacco user Tobacco use type: Cigarette Cigarettes Per Day: 6 e-Cigarette/Vaping Use: Never Used Second Hand Smoke Exposure: No Substance Use Type: Marijuana service: No Current occupational status: employed Current occupational exposures/hazards: No Cognitive needs: No Hearing needs: No Vision needs: Yes Questionnaire PHQ-9 Over the last 2 weeks, how often have you been bothered by any of the following problems? 1. Little interest or pleasure in doing things: not at all 2. Feeling down, depressed, or hopeless: not at all 3. Trouble falling or staying asleep, or sleeping too much: not at all 4. Feeling tired or having little energy: not at all 5. Poor appetite or overeating: not at all 6. Feeling bad about yourself - or that you are a failure or have let yourself or your family down: not at all 7. Trouble concentrating on things, such as reading the newspaper or watching television: not at all 8. Moving or speaking so slowly that other people could have noticed. Or the opposite - being so fidgety or restless that you have been moving around a lot more than usual: not at all 9. Thoughts that you would be better off or of hurting yourself in some way: not at all Total score: 0 Depression Screening Interpretation: Negative Depression Screening Done: Yes 97793 - PHQ-9 Billing: Yes Source: Developed by Drs. Naveen Yung, Emily Goetz, Amari Spivey and colleagues, with an educational zack from [employer]. Thrive Questionnaire Date Thrive assessed: 01/02/24 I am a: Patient What is your living situation today?: I have a steady place to live Within the past 12 months, did the food you bought not last and you didn't have the money to get more?: Sometimes True Within the past 12 months, did you worry whether your food would run out before you got money to buy more?: Sometimes True Do you have trouble paying for medicines?: Yes Do you have trouble getting transportation to medical appointments?: No Do you have trouble paying your heating and electricity bill?: No Do you have trouble taking care of your child, family member or friend?: No Do you have trouble with day-to-day activities such as bathing, preparing meals, shopping, managing finances, etc.?: No Are you currently unemployed and looking for a job?: No Are you interested in more education?: No Please select the resources that you would like help with: Paying for medicine Currently or been in a relationship where the following occur: No concerns reported THRIVE Score: 2 AUDIT C Alcohol Use Questionnaire (AUDIT-C) 1. How often do you have a drink containing alcohol?: Monthly or less 2. How many drinks containing alcohol do you have on a typical day when you are drinking?: 1 or 2 3. How often do you have six or more drinks on one occasion?: Never Total Score: 1 Score Reviewed/Action Taken: No FRANKY-7 AMB Questionnaire FRANKY-7 Date FRANKY - 7 assessed: 01/02/24 Feeling nervous, anxious, or on edge: 0 = Not at all Not being able to stop or control worryin = Not at all Worrying too much about different things: 0 = Not at all Trouble relaxin = Not at all Being so restless that it is hard to sit still: 0 = Not at all Becoming easily annoyed or irritable: 0 = Not at all Feeling afraid as if something awful might happen: 0 = Not at all Total FRANKY-7 score (0-4 normal; 5-9 mild; 10-14 moderate; 15-21 severe): 0 Source: Developed by Drs. Naveen Yung, Emily Goetz, Amari Spivey and colleagues, with an educational zack from [employer]. FRANKY-7 Assessment Billing FRANKY-7 Assessment Tool: FRANKY-7 Assessment 12286 Review of Systems Const All systems reviewed & are unremarkable except as noted in HPI and below Card Denies chest pain at rest, Denies chest pain with activity, Denies edema, Denies irregular heart rhythm, Denies claudication, Denies dyspnea, Denies dyspnea on exertion, Denies orthopnea, Denies paroxysmal nocturnal dyspnea and Denies slow heart rate Resp Denies cough, Denies dyspnea and Denies dyspnea on exertion GI Denies abdominal pain, Denies change in bowel habits, Denies excessive flatus, Denies nausea and Denies vomiting Denies urinary incontinence, Denies urinary hesitancy and Denies urinary urgency Musc Denies abnormal gait, Denies atrophy, Denies deformity and Denies limited range of motion Skin/Breast Denies bleeding lesions, Denies changing lesions and Denies rash Neuro Denies abnormal gait, Denies behavioral changes and Denies lack of coordination Psych Denies behavioral changes Physical exam (Primary Care) Vital Signs: Last Vital Signs BP 122/80 01/02/24 08:22 BMI result Body Mass Index 33.8 BMI Assessment/Plan discussion: High BMI High, discussed plan: lifestyle, weight reduction, dietary and physical activity Tobacco/Smoking Status: Tobacco use Status Tobacco use date assessed 01/02/24 01/02/24 08:29 Patient Tobacco Use Status Current everyday Tobacco 01/02/24 08:29 Tobacco use type Cigarette 01/02/24 08:29 e-Cigarette/Vaping Use Never Used 01/02/24 08:29 Are you ready to quit: No Tobacco cessation counseling provided: Yes Items discussed: Nicotine replacement and QuitWorks Relapse Prevention: discussed the importance of a supportive environment, discussed extending NRT, discussed negative mood or depression after quitting, weight gain after smoking is common and discussed dietary, exercise and/or lifestyle changes Number of minutes spent counselin CPT code: 95652 - 4-10 Minutes PHQ-9: PHQ-9 Score PHQ-9: Total score 0 01/02/24 08:29 Depression Screening Interpretation: Negative Thrive Assessment: Date of Thrive Assessment Date Thrive assessed 01/02/24 01/02/24 08:29 Currently or been in a relationship where the following occur: No concerns reported Const General: cooperative HENMT Head: Yes normal to inspection, Yes normocephalic and Yes atraumatic Ears: external ears normal Eyes General: appearance normal, both eyes and all related structures Eyelids: Yes eyelids normal Conjunctivae: conjunctivae normal Neck Neck: Yes normal visual inspection and Yes supple Resp Effort & Inspection: normal respiratory effort Auscultation: clear to auscultation bilaterally Cardio Jugular venous distension: no JVD Rate: regular rate Rhythm: regular rhythm Heart sounds: S1 normal heart sound present and S2 normal heart sound present GI Inspection: Yes normal to inspection Palpation (GI): Soft to palpation and nontender Auscultation: normal bowel sounds Skin General skin exam: no rashes or lesions noted Neuro General: no focal motor deficits Extrem General: Yes full ROM Psych Appearance: grossly normal Office Procedures Flu Questionnaire Does the patient have a severe egg allergy?: No Immunizations Fluarix Triv [id number] (PF) 45 mcg (15 mcg x 3)/0.5 mL IM syringe Performing Provider: Odilia Oh MD Performing Location: [facility] [place] [facility] Documented (not given) by: RJ Chen on 01/02/24 08:30 Reason Not Given: Patient Refused Coding Level of Care Code Est Pt Level 3 (95933) Est Pt Prev Care 40-64y(79083) Diagnoses Physical exam Z00.00 Hemorrhoids, unspecified hemorrhoid type K64.9 Hemorrhoid type: unspecified Moderate major depression F32.1 Additional Codes FRANKY-7 Assessment Billing - FRANKY-7 Assessment Tool: FRANKY-7 Assessment 28442 ([id number]) Vital Signs *Quality* - CPT code: 60847 - 4-10 Minutes ([id number]) Time Spent (min) 35 Assessment & Plan Assessment & Plan (1) Physical exam: Code(s): Z00.00 - Encounter for general adult medical examination without abnormal findings Category: Medical Plan: Repeat in a year. (2) Hemorrhoids: Code(s): K64.9 - Unspecified hemorrhoids Category: Medical Qualifiers: Hemorrhoid type: unspecified Qualified Code(s): K64.9 - Unspecified hemorrhoids Plan: Referred to surgery. (3) Moderate major depression: Code(s): F32.1 - Major depressive disorder, single episode, moderate Category: Medical Plan: Continue SSRIs. Orders: Orders MM tomosynthesis screening BI Today Z12.31 - Encounter for screening mammogram for malignant neoplasm of breast Influenza [id number] Immunization Today Z23 - Encounter for immunization Vitamin D 25-OH Total Today E55.9 - Vitamin D deficiency, unspecified Comprehensive [place]. Panel Fast Today Z00.00 - Encounter for general adult medical examination without abnormal findings Lipid Panel Today Z00.00 - Encounter for general adult medical examination without abnormal findings Referrals General Surgery Referral K64.9 - Unspecified hemorrhoids Medications: Refilled hydroxyzine HCl 25 mg PO BID PRN 30 tabs 0RF itching F41.9 - Anxiety disorder, unspecified
[2024-01-02 08:22] VITALS: BP 122/80; BMI 33.8
== END 2024-01-02 08:46 | disposition home or self-care (01) ==
PROVIDERS: PCP Internal Medicine; Visit Provider Internal Medicine
DX: Z00.00 Encounter for general adult medical examination without abnormal findings (principal); K64.9 Unspecified hemorrhoids; F32.1 Major depressive disorder, single episode, moderate

== ENCOUNTER → 2024-01-02 07:49 | Outpatient (BNVA) | payer OTHER, SELFPAY | PROVIDERS: PCP Internal Medicine; Visit Provider Internal Medicine | DX: Z00.01 Encounter for general adult medical examination with abnormal findings (principal); K64.9 Unspecified hemorrhoids; F32.1 Major depressive disorder, single episode, moderate; Z28.21 Immunization not carried out because of patient refusal | CPT/HCPCS: 90471; 96127; 99396 ==

== ENCOUNTER 2024-01-18 08:30 | Outpatient (AMB) | payer OTHER, SELFPAY ==
[2024-01-18 08:35] VITALS: BP 119/67; PULSE 83; BMI 34.5
--- NOTE | 2024-01-18 08:35 | MHC.OFFVIS ---
Vital Signs 01/18/24 08:35 Height 5 ft 7 in Weight 220 lb BMI 34.5 BP 119/67 Blood Pressure Location Rt brachial Position Sitting Pulse 83 Intake Visit Reasons: Hemorrhoids Intake Note: This patient presents for hemorrhoids. Pt c/o; reports pain, reports burning sensation, reports occasional rectal bleeding after bowel movements, reports constipation. 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 Required: Yes 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 Language: Pesticide Use Medical Coordinator Services: 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 Present 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 Name: Yoel Information Interpreted: non-clinical & clinical Accompanied by: Self / Same As Patient Allergies No Known Allergies Allergy (Verified 01/18/24 08:45) Medication List - Last Reconciled 01/18/24 by Roderick Alexandre MD baclofen 10 mg PO BID PRN famotidine 20 mg PO BID hydroxyzine HCl 25 mg PO BID PRN lidocaine 5% 1 patch topical DAILY 30 days nabumetone 750 mg PO BID PRN 30 days ondansetron 4 mg PO Q8H PRN sertraline 25 mg PO DAILY 90 days HPI HPI Hemorrhoids: Details: [age] year old female referred for hemorrhoid issues. She says she has had hemorrhoids for the past 14 years after she had given . She always has had this problem with swelling and pain on and off. However, she says that these problems have been worsening over the past few years. She describes occasionally seeing small amounts of bright blood per rectum. She says that the hemorrhoids become more swollen than before. She feels these to be much bigger. She says she had decided that she wants to proceed with hemorrhoidectomy. She admits to chronic constipation. [facility] Medical History Hemorrhoids with complication Cannabinoid hyperemesis syndrome Marijuana use Surgical History H/O: hysterectomy History of cholecystectomy Family History Mother No problems noted. Father No problems noted. Sister No problems noted. Sister No problems noted. Brother Diabetes Stroke Son No problems noted. Daughter No problems noted. Social History Housing: Apartment Alcohol intake: current Alcohol intake frequency: holidays/special occasions only Alcohol type: beer Patient Tobacco Use Status: Current everyday Tobacco user Tobacco use type: Cigarette Cigarettes Per Day: 6 e-Cigarette/Vaping Use: Never Used Second Hand Smoke Exposure: No Substance Use Type: Marijuana service: No Current occupational status: employed Current occupational exposures/hazards: No Cognitive needs: No Hearing needs: No Vision needs: Yes Review of Systems Const Denies chills and Denies fever(s) Card Denies chest pain, Denies dyspnea and Denies dyspnea on exertion Resp Denies cough, Denies dyspnea and Denies dyspnea on exertion GI Reports hematochezia, Denies change in bowel habits and Reports constipation Denies hematuria Musc Denies back pain and Denies limited range of motion Neuro Denies focal weakness and Denies convulsions Psych Denies depression and Denies mood swings Physical Exam Vital Signs: Last Vital Signs Pulse 83 01/18/24 08:35 BP 119/67 01/18/24 08:35 BMI result Body Mass Index 34.5 Const General: comfortable and no acute distress Orientation/consciousness: patient oriented x3 Neck Neck: Yes no lymphadenopathy Resp Auscultation: clear to auscultation bilaterally Cardio Rhythm: regular rhythm GI Other: Large external hemorrhoids, tender; I had attempted an anoscopy but she could not tolerate this because of pain Palpation (GI): Soft to palpation, nontender and no guarding Neuro General: patient oriented x3 Assessment & Plan Assessment & Plan (1) Hemorrhoids with complication: Code(s): K64.8 - Other hemorrhoids Category: Medical Plan: She has this large external hemorrhoid. She has had worsening problems with this and wants to proceed with hemorrhoidectomy. She describes frequent pain, swelling as well as bleeding. I had a long discussion with her about the technique of exam under anesthesia and hemorrhoidectomy. I reviewed the risks including but not limited to bleeding, infections, postop pain, as well as the benefits and alternatives. I reviewed with her what to expect postoperatively. She says she understands and wants to proceed. Coding Level of Care Code New Pt Level 3 (53764) Diagnoses Hemorrhoids with complication K64.8
== END 2024-01-18 09:11 | disposition home or self-care (01) ==
LOC: HO.HGS 08:31
PROVIDERS: PCP Internal Medicine; Referring Provider Internal Medicine; Visit Provider Surgery
DX: K64.8 Other hemorrhoids (principal)
CPT/HCPCS: 99203

== ENCOUNTER → 2024-01-18 08:30 | Outpatient (BNVA) | payer OTHER, SELFPAY | PROVIDERS: PCP Internal Medicine; Referring Provider Internal Medicine; Visit Provider Surgery | DX: K64.8 Other hemorrhoids (principal) | CPT/HCPCS: 99202 ==

== ENCOUNTER 2024-01-20 08:43 | Outpatient (REF) | payer OTHER, SELFPAY | END 2024-01-20 08:44 | disposition home or self-care (01) | LOC: HO.MAMMO 08:43 | PROVIDERS: PCP Internal Medicine; Visit Provider Internal Medicine | DX: Z13.89 Encounter for screening for other disorder (principal) ==

== ENCOUNTER 2024-03-07 14:15 | Outpatient (AMB) | payer OTHER, SELFPAY ==
[2024-03-07 14:18] VITALS: BP 122/74; BMI 35.1
--- NOTE | 2024-03-07 14:18 | MHC.OFFVIS ---
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 Snack Bar Cashier Required: No Information Interpreted: clinical only Lab Engineer: Lab Engineer Present Allergies No Known Allergies Allergy (Verified 03/07/24 14:21) Medication List - Last Reconciled 03/07/24 by Aby Berkowitz CNM baclofen 10 mg PO BID PRN famotidine 20 mg PO BID hydroxyzine HCl 25 mg PO BID PRN lidocaine 5% 1 patch topical DAILY 30 days nabumetone 750 mg PO BID PRN 30 days ondansetron 4 mg PO Q8H PRN sertraline 25 mg PO DAILY 90 days Is last menstrual period known: No (no menses, hysterectomy ,2019) HPI HPI 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 She has not been seen in this practice previously. She has a history of a hysterectomy 5 years ago at [facility] she said she was bleeding very heavily and when I asked her if she had fibroids she said yes. She does not know if she ever had an abnormal Pap smear or anything but she does not remember getting a call about it. Her care in the more distant past was in [place]. She has a history of constipation and she is scheduled for hemorrhoidectomy this next week on Monday. She says she is not on any medication to help her with constipation and she intended to start eating better before her surgery. She says the surgeon recommended that she were fruits and vegetables and fiber and avoid greasy foods but she does not need them much Grease. She is also concerned about vaginal discharge that has an odor and a white discharge she has been getting it more for about the last 6 months or so and she attributes it to bacterial vaginosis. She started with a new partner about 8 months ago and also she feels a lot of pressure when she has sex.. PFSH Medical History Hemorrhoids with complication Cannabinoid hyperemesis syndrome Marijuana use Surgical History (Updated 03/07/24 @ 15:27 by Aby Berkowitz CNM) S/P H/O: hysterectomy History of cholecystectomy Family History (Updated 03/07/24 @ 14:29 by Alesha Beyer [facility]) Mother No problems noted. Father No problems noted. Sister No problems noted. Sister No problems noted. Brother Diabetes Stroke Son No problems noted. Daughter No problems noted. Maternal Aunt Colon cancer Breast cancer Ovarian cancer Paternal Aunt Colon cancer Social History Housing: Apartment Alcohol intake: current Alcohol intake frequency: holidays/special occasions only Alcohol type: beer Patient Tobacco Use Status: Current everyday Tobacco user Tobacco use type: Cigarette Cigarettes Per Day: 6 e-Cigarette/Vaping Use: Never Used Second Hand Smoke Exposure: No Substance Use Type: Marijuana service: No Current occupational status: employed Current occupational exposures/hazards: No Cognitive needs: No Hearing needs: No Vision needs: Yes Female Reproductive History Menstrual Age of Menarche: 14 Duration of menses: 3-5 days control method: none Total pregnancies: 3 Full term: 2 Number of Living Children: 2 History of abnormal pap smear: No (2022,neg.per patient) Physical Exam Vital Signs: Last Vital Signs BP 122/74 03/07/24 14:18 BMI result Body Mass Index 35.1 Const General: healthy appearing, comfortable, no acute distress, well developed and alert Nutritional Appearance: average body habitus Orientation/consciousness: patient oriented x3 Limitations: no limitations HEENT Head: Yes normocephalic Neck Neck: Yes normal visual inspection Chest Chest palpation & inspection: normal inspection of the chest Breast/axilla inspection: normal inspection of the breasts and normal inspection of the axillae Breast/axilla palpation: normal palpation of the breasts and normal palpation of the axillae Resp Effort & Inspection: normal respiratory effort GI Inspection: Yes normal to inspection, No Abdominal wall edema and No distended Palpation (GI): Soft to palpation and nontender Other: External exam within normal limits vagina and vaginal mucosa is pink dry no vaginal discharge noted at all no cervix perceived were palpated vaginal cuff very well healed and smooth. Patient was slightly tender with Pap smear but it was not the pressure she was describing when she has sex. Adnexa not enlarged nontender good muscle tone with Kegel. cervix and uterus are surgically absent. General: Yes bladder normal to palpation External Female Exam: normal external appearance and normal appearance of the urethra Speculum Exam - Vagina: normal appearance of the vagina, normal palpation and normal vaginal discharge Speculum Exam - Cervix: Cervix absent and nontender Bimanual exam- vagina & uterus: normal bimanual exam, normal palpation, bladder normal to palpation, No Cervical tenderness present, non-tender, uterus absent and no cervical motion tenderness Bimanual Exam- Adnexa, other: normal adnexae, no masses, normal and No adnexal tenderness Neuro General: patient oriented x3 Results Reviewed Results Reviewed: No previous Paps in system no previous records from [facility] hysterectomy records, Assessment & Plan Assessment & Plan (1) Women's annual routine gynecological examination: Code(s): Z01.419 - Encounter for gynecological examination (general) (routine) without abnormal findings Category: Medical (2) Vaginal odor: Code(s): N89.8 - Other specified noninflammatory disorders of vagina Category: Medical (3) Cervical cancer screening: Comment: No cervix visible, Pap of vaginal cuff done. Code(s): Z12.4 - Encounter for screening for malignant neoplasm of cervix Category: Medical (4) Vaginal dryness: Comment: Not normally a problem for her noted today discussed. Code(s): N89.8 - Other specified noninflammatory disorders of vagina Category: Medical Plan Discussed changes that take place as we approach menopause she still has her ovaries discussed possible cyclic changes that she may recognize or may not. Discussed how vaginal dryness can increase as we approach menopause and discussed the role of vaginal lubricants. She has not needed them. Discussed the pressure that she described sometimes when she has sex and discussed changing tissue turgor internally as well as externally, and how this could manifest with perceived pressure against her peritoneum and intestines. Discussed her constipation history she does say that she does have frequent bowel movements but she has to strain and push every time and it is hard. suggested alternatives of the the prune juice Metamucil or MiraLax. She is awaiting the rescheduling of her mammogram to be a diagnostic mammogram and this order will be coming from her primary care provider, as she says communication has already occurred between mammogram department and her primary. I urged dealing with the bowel have it issue before her surgery. I did a Pap smear of her vaginal cuff area as we do not have records from her past. Testing done for gonorrhea chlamydia trichomoniasis bacterial vaginosis and yeast vagina was just extremely dry today with no discharge whatsoever. She declined blood tests for STIs. Coding Level of Care Code New Pt Prev Care 40-64y(01366) Diagnoses Women's annual routine gynecological examination Z01.419 Vaginal odor N89.8 Cervical cancer screening Z12.4 Vaginal dryness N89.8
== END 2024-03-07 15:32 | disposition home or self-care (01) ==
PROVIDERS: PCP Internal Medicine; Visit Provider Advanced Practice Midwife
DX: Z01.419 Encounter for gynecological examination (general) (routine) without abnormal findings (principal); N89.8 Other specified noninflammatory disorders of vagina
CPT/HCPCS: 99386; 99459

== ENCOUNTER 2024-03-07 14:15 | Outpatient (REF) | payer OTHER, SELFPAY | END 2024-03-07 14:16 | disposition home or self-care (01) | LOC: HO.LAB 14:15 | PROVIDERS: PCP Internal Medicine; Visit Provider Advanced Practice Midwife | DX: N89.8 Other specified noninflammatory disorders of vagina (principal) | CPT/HCPCS: 99386; 99459 ==

== ENCOUNTER 2024-03-07 15:28 | Outpatient (REF) | payer OTHER, SELFPAY ==
[2024-03-08 04:43] LABS: CT PCR NOT DETECTED (Not Detect.); NG PCR NOT DETECTED (Not Detect.)
[2024-03-08 08:32] LABS: Bacterial Vaginosis PCR POSITIVE (Negative); Candida Group PCR NOT DETECTED (Not Detect); Candida glab krusei PCR NOT DETECTED (Not Detect); Trichomonas vaginalis PCR NOT DETECTED (Not Detect)
[2024-03-08 13:37] LABS: HPV 16,18/45 See PAP report
== END 2024-03-07 15:29 | disposition home or self-care (01) ==
LOC: HO.LNP 15:28
PROVIDERS: Visit Provider Advanced Practice Midwife
DX: Z01.419 Encounter for gynecological examination (general) (routine) without abnormal findings (principal); N89.8 Other specified noninflammatory disorders of vagina
CPT/HCPCS: 0352U; 87491; 87591; 87624; 88175

== ENCOUNTER 2024-03-30 10:17 | Outpatient (REF) | payer OTHER, SELFPAY | END 2024-03-30 10:18 | disposition home or self-care (01) | LOC: HO.MAMMO 10:17 | PROVIDERS: PCP Internal Medicine; Visit Provider Internal Medicine | DX: Z12.31 Encounter for screening mammogram for malignant neoplasm of breast (principal) | CPT/HCPCS: 77063; 77067 ==

== ENCOUNTER → 2024-03-30 10:45 | Outpatient (BNV) | payer OTHER, SELFPAY | PROVIDERS: PCP Internal Medicine; Visit Provider Internal Medicine | DX: Z12.31 Encounter for screening mammogram for malignant neoplasm of breast (principal) | CPT/HCPCS: 77063; 77067 ==

== ENCOUNTER 2024-04-05 08:59 | Day surgery (SDC) | payer OTHER, SELFPAY ==
[2024-04-03 11:50] VITALS: BMI 34.5
[2024-04-05] VITALS (17 sets, daily range): BP systolic 108–159; BP diastolic 45–91; PULSE 64–89; RESP 12–20; TEMP 36.1–36.4; O2SAT 94–100; BMI 32.5
[2024-04-05] MEDS: Lactated Ringers 1,000 ML 100 ML IVCONT (10:03)
--- NOTE | 2024-04-05 11:00 | P.CONAN_ITS ---
Documented by User: Maria Del Rosario Fuller NP 04/03/24 13:36 HPI - Anesthesia Eval Consult details Narrative: 43yo F for EUA, Hemorrhoidectomy PMFSH Active Problems Active Problems: All Active Problems Vaginal dryness (Acute) H/O: hysterectomy (Acute) Cervical cancer screening (Acute) Vaginal odor (Acute) Women's annual routine gynecological examination (Acute) Hemorrhoids with complication (Acute) Physical exam (Acute) Hemorrhoids (Acute) Lumbar degenerative disc disease (Acute) Lumbar back pain with radiculopathy affecting right lower extremity (Acute) Lumbosacral spondylosis (Acute) Cervical spondylosis (Acute) Muscle spasms of neck (Acute) Sinusitis (Acute) Obese (Acute) Diarrhea (Acute) Moderate major depression (Acute) Lumbar pain (Acute) Neck pain (Acute) Sinusitis (Acute) Jaw pain (Acute) Vitamin D deficiency (Acute) Anxiety (Acute) Polydipsia (Acute) Past Medical History Medical History Asthma GERD (gastroesophageal reflux disease) Hemorrhoids with complication Cannabinoid hyperemesis syndrome Marijuana use Family History Family History (Updated 03/07/24 @ 14:29 by Alesha Beyer [facility]) Mother No problems noted. Father No problems noted. Sister No problems noted. Sister No problems noted. Brother Diabetes Stroke Son No problems noted. Daughter No problems noted. Maternal Aunt Colon cancer Breast cancer Ovarian cancer Paternal Aunt Colon cancer Surgical History Surgical History (Updated 04/05/24 @ 09:31 by Cece Ragland RN) History of ankle surgery History of nasal surgery S/P H/O: hysterectomy History of cholecystectomy Social History Social History Housing: Apartment Alcohol intake: current Alcohol intake frequency: holidays/special occasions only Alcohol type: beer Patient Tobacco Use Status: Current everyday Tobacco user Tobacco use type: Cigarette Cigarettes Per Day: 8 e-Cigarette/Vaping Use: Never Used Second Hand Smoke Exposure: No Use of substances other than those prescribed or required for medical reasons: Yes Substance Use Type: Marijuana Substance Use Type Other:: smoked--last used 2 days ago Substance Use Frequency: Occasionally Are you DNR?: No Advance Directives: No Advance Directives Information Provided: Yes service: No Current occupational status: employed Current occupational exposures/hazards: No Cognitive needs: No Hearing needs: No Vision needs: Yes Meds Allergies Allergy/AdvReac Type Severity Reaction Status Date / Time No Known Allergies Allergy Verified 03/07/24 14:21 Home Medications ?Medication ?Instructions ?Recorded ?Confirmed ?Last Taken ?Type famotidine 20 mg tablet 20 mg PO BID 01/18/24 03/07/24 Unknown History Exam Height,Weight and Vital Signs: Height 5 ft 7 in Weight 99.79 kg Pertinent Lab Results Pertinent Lab Results: Laboratory Tests 08/28/23 11:14 WBC 11.2 H Hgb 14.9 Hct 41.5 Plt Count 348 Sodium 142 Potassium 3.3 Chloride 106 Carbon Dioxide 24 BUN 11 Creatinine 0.74 Narrative Narrative: EKG 08/2023 Vent. Rate : 075 BPM Atrial Rate : 075 BPM P-R Int : 126 ms QRS Dur : 084 ms QT Int : 402 ms P-R-T Axes : 065 020 049 degrees QTc Int : 448 ms Normal sinus rhythm Normal ECG No previous ECGs available Assessment and Plan Assessment Anesthesia Assessment: Chart Reviewed Documented by User: Cece Curtis DO 04/05/24 11:25 HPI - Anesthesia Eval Consult details Narrative: 43yo F for EUA, Hemorrhoidectomy. Daily marijuana. [facility] Past Medical History Medical History Asthma GERD (gastroesophageal reflux disease) Hemorrhoids with complication Cannabinoid hyperemesis syndrome Marijuana use Family History Family History (Updated 03/07/24 @ 14:29 by Alesha Beyer CMA) Mother No problems noted. Father No problems noted. Sister No problems noted. Sister No problems noted. Brother Diabetes Stroke Son No problems noted. Daughter No problems noted. Maternal Aunt Colon cancer Breast cancer Ovarian cancer Paternal Aunt Colon cancer Family history of problems with anesthesia: No Surgical History Surgical History (Updated 04/05/24 @ 09:31 by Cece Ragland RN) History of ankle surgery History of nasal surgery S/P H/O: hysterectomy History of cholecystectomy History of Problems with Anesthesia: No Social History Social History (Reviewed 12/26/24 @ 14:22 by KOLE Barnes Housing: Apartment Alcohol intake: current Alcohol intake frequency: holidays/special occasions only Alcohol type: beer Patient Tobacco Use Status: Current everyday Tobacco user Tobacco use type: Cigarette Cigarettes Per Day: 8 e-Cigarette/Vaping Use: Never Used Second Hand Smoke Exposure: No Use of substances other than those prescribed or required for medical reasons: Yes Substance Use Type: Marijuana Substance Use Type Other:: smoked--last used 2 days ago Substance Use Frequency: Occasionally Are you DNR?: No Advance Directives: No Advance Directives Information Provided: Yes service: No Current occupational status: employed Current occupational exposures/hazards: No Cognitive needs: No Hearing needs: No Vision needs: Yes Meds Allergies Allergy/AdvReac Type Severity Reaction Status Date / Time No Known Allergies Allergy Verified 03/07/24 14:21 Home Medications ?Medication ?Instructions ?Recorded ?Confirmed ?Last Taken ?Type famotidine 20 mg tablet 20 mg PO BID 01/18/24 03/07/24 Unknown History Exam Exam Date and Time: 04/05/24 1100 Height,Weight and Vital Signs: Height 5 ft 8 in Weight 97.069 kg Vital Signs Temperature 97.5 F 04/05/24 09:45 Pulse Rate 71 04/05/24 09:45 Respiratory Rate 15 04/05/24 09:45 Blood Pressure 108/45 L 04/05/24 09:45 Pulse Oximetry 97 04/05/24 09:45 Oxygen Delivery Method Room Air 04/05/24 09:45 Temperature 97.5 F 04/05/24 09:45 Pulse Rate 71 04/05/24 09:45 Respiratory Rate 15 04/05/24 09:45 Blood Pressure 108/45 L 04/05/24 09:45 Pulse Oximetry 97 04/05/24 09:45 Oxygen Delivery Method Room Air 04/05/24 09:45 Height 5 ft 7 in Weight 99.79 kg Airway Mallampati Class: II TM Dist: >3cm Neck ROM: Full Loose/Missing/Broken Teeth: No (patient denies any loose or broken teeth) Heart: S1S2 Lungs: CTAB Assessment and Plan Assessment Anesthesia Assessment: Anesthesia Plan Discussed and Chart Reviewed Final Anesthetic Review Family History of Problems with Anesthesia: No History of Problems with Anesthesia: No NPO: Yes ASA Class: II Final Preanesthetic Review: No Changes in Pt Med Stat, Meds/Allgs Chart Reviewed, Consent Obtained/Reviewed and Anes Risks/Benef Reviewed Patient Risk: Low Procedure Risk: Low Anesthetic Plan Anesthetic Plan: GA and Agree w/ Assess. and Plan Disposition: Standard PACU
--- NOTE | 2024-04-05 11:33 | MHC.SHP ---
Pre-Procedural Eval Section A - 24 Hr Update-Section A only Date of Service: 04/05/24 Section B - Complete if H&P > 30 days Chief Complaint: Other hemorrhoids Details of Present Illness: Has large painful hemorrhoids, wants to proceed with hemorrhoidectomy Relevant Social History: None Present Medications: see Short Stay Collaborative assessment Medical History: Significant History (Chronic back pain, obesity, depression) Allergies: Allergies Allergy/AdvReac Type Severity Reaction Status Date / Time No Known Allergies Allergy Verified 03/07/24 14:21 Review of Systems Sugical H&P ROS: Negative: Constitution, Cardiovascular and Respiratory Exam Surgical H&P Exam: Normal: Heart, Normal: Lungs and Normal: Extremities Exam Comment: External hemorrhoids Plan Diagnosis/Plan: Unchanged I have reviewed the history and physical and performed a pertinent physical examination on my patient. No changes have occurred unless specified. Time Spent With Patient Time: Total time managing care of this patient today ____ minutes.
--- NOTE | 2024-04-05 12:25 | W.PM.OPN ---
Operative Note Operative Note Date of Service: 04/05/24 Narrative: Preop diagnosis: Internal external hemorrhoids, with pain and frequent swelling Postop diagnosis: The same Procedure: Exam under anesthesia hemorrhoids, hemorrhoidectomy x2 columns Surgeon: Roderick Alexandre MD Cable Tower Operator: NURIA Green The patient is a 43-year-old female with a long history of pain and discomfort with her hemorrhoids. She was seen in the office it was noted to have bulky hemorrhoidal columns externally . She understood the technique of hemorrhoidectomy. She was aware of the risks, benefits, and alternatives She was brought to the operating room. She was placed in prone diony-knife position under general anesthesia via endotracheal tube. The buttocks were retracted with wide tape laterally. The perianal area was prepped and draped in the usual sterile fashion. A surgical time-out was done. The patient received Cefotan 2 g IV preoperatively. I infiltrated the perianal area with lidocaine 1% There was note of a bulky external hemorrhoidal column on the posterior. I inserted the Sarah Senior retractor examined the anal canal circumferentially. There were no lesions in the anal canal. There was no fissure or ulceration. There was note of the hemorrhoidal column was appeared to a mix of internal external on the right side. The external hemorrhoidal column, bulky, was seen on the left I applied a Travis grasper at the external hemorrhoidal column on the left. This was retracted out in the field. I made a dcxtka-os-kakwy stitch at the pedicle using a chromic 3-0. I made an incision around this hemorrhoidal column to the perianal skin with a blade 15. I excised this hemorrhoidal column above the plane of the sphincters along this incision scissors. I closed the incision in a running chromic 3-0 stitch. Additional hemostatic vthbzy-yy-vjfgu sutures were placed area I repeated the procedure on the hemorrhoidal column on the right. This 1 was a mix of internal external. I retracted this out into the field and made a qvmhju-xn-gzebm stitch at the pedicle with a chromic 3-0. I made an incision around this hemorrhoidal column to the perianal skin with a blade 15. I excised this along this incision above the plane of the sphincters. I closed this incision with a running chromic 3-0 stitch with additional hemostatic sutures placed for oozing areas Once hemostasis was confirmed, I infiltrated the perianal area with Marcaine 0.5%. The procedure was then completed The patient tolerated procedure well. There were no immediate complications. Initial final counts of sponges and instruments were correct. Estimated blood loss about 25 cc. The patient was extubated without difficulty and transferred to the recovery room with stable vital signs.
[2024-04-05] MEDS: oxyCODONE HCl Immed Release 5 MG TABLET PO (12:53)
[2024-04-05] MEDS: fentaNYL citrate/PF 100 MCG/2 ML VIAL 50 MCG IVPUSH ×4 (12:55→13:51)
== END 2024-04-05 15:29 | disposition home or self-care (01) ==
PROVIDERS: PCP Internal Medicine; Visit Provider Surgery
PROC: (CPT 46255; principal; 2024-04-05 11:30)
DX: K64.8 Other hemorrhoids (principal); K62.5 Hemorrhage of anus and rectum; K64.4 Residual hemorrhoidal skin tags; K59.09 Other constipation; R11.10 Vomiting, unspecified; F12.90 Cannabis use, unspecified, uncomplicated; Z79.899 Other long term (current) drug therapy; Z90.49 Acquired absence of other specified parts of digestive tract; Z90.710 Acquired absence of both cervix and uterus; F17.210 Nicotine dependence, cigarettes, uncomplicated
CPT/HCPCS: 46255; 46999; 88304; J1100; J1171; J1885; J2003; J2405; J2704; J2795; J3010

== ENCOUNTER → 2024-04-05 08:59 | Outpatient (BNV) | payer OTHER, SELFPAY | PROVIDERS: PCP Internal Medicine; Visit Provider Surgery | DX: K64.8 Other hemorrhoids (principal) | CPT/HCPCS: 46260 ==

== ENCOUNTER 2024-04-24 08:20 | Outpatient (AMB) | payer OTHER, SELFPAY ==
--- NOTE | 2024-04-24 08:22 | A.OFFVIS_ITS ---
Vital Signs 04/24/24 08:29 Height 5 ft 8 in Weight 219 lb 6 oz BMI 33.4 Intake Visit Reasons: s/p hemorrhoidectomy Intake Note: This patient presents for post-op assessment status post hemorrhoidectomy. Pt c/o; no rectal bleeding, reports swelling/pain, constipation. Electric Installer Required: Yes Electric Installer Language: Telephone Operator Chief Services: Electric Installer Offered & Declined Accompanied by: Self / Same As Patient Allergies No Known Allergies Allergy (Verified 04/24/24 08:31) HPI HPI s/p hemorrhoidectomy: Details: She had undergone hemorrhoidectomy x2 columns last 04/05/2024. She tolerated procedure well. She admits to having significant pain for the 1st week postop She says she feels much better now. PFSH Medical History Asthma GERD (gastroesophageal reflux disease) Hemorrhoids with complication Cannabinoid hyperemesis syndrome Marijuana use Surgical History History of hemorrhoidectomy (~04/05/24) History of ankle surgery History of nasal surgery S/P H/O: hysterectomy History of cholecystectomy Family History Mother No problems noted. Father No problems noted. Sister No problems noted. Sister No problems noted. Brother Diabetes Stroke Son No problems noted. Daughter No problems noted. Maternal Aunt Colon cancer Breast cancer Ovarian cancer Paternal Aunt Colon cancer Social History Housing: Apartment Alcohol intake: current Alcohol intake frequency: holidays/special occasions only Alcohol type: beer Patient Tobacco Use Status: Current everyday Tobacco user Tobacco use type: Cigarette Cigarettes Per Day: 8 e-Cigarette/Vaping Use: Never Used Second Hand Smoke Exposure: No Substance Use Type: Marijuana service: No Current occupational status: employed Current occupational exposures/hazards: No Cognitive needs: No Hearing needs: No Vision needs: Yes Female Reproductive History Menstrual Age of Menarche: 14 Review of Systems Const Denies chills and Denies fever(s) Physical Exam Vital Signs: BMI result Body Mass Index 33.4 Const Other: Sitting on chair General: comfortable and no acute distress Resp Effort & Inspection: normal respiratory effort GI Other: Rectal exam shows the hemorrhoidectomy sites to be healing well, signs of infection, note of edema of the residual hemorrhoidal tissue Assessment & Plan Assessment & Plan (1) Hemorrhoids with complication: Code(s): K64.8 - Other hemorrhoids Category: Medical Plan: Status post hemorrhoidectomy. She is doing very well. Hemorrhoidectomy sites are well healing I advised her to continue to do hot Sitz baths in view of the residual edema She is to avoid straining and constipation. She can follow up with me on a p.r.n. basis. Her path report shows hemorrhoidal tissue. Coding Level of Care Code Global (94502) Diagnoses Hemorrhoids with complication K64.8
[2024-04-24 08:29] VITALS: BMI 33.4
--- OUTSIDE RECORDS SUMMARY | 2024-04-24 08:53 | XMS_ITS | Continuity of Care Document ---
Author Organization [facility] Address [address] [place] [address] Phone Care Team Providers Care Shell Shop Supervisor Name Role Phone Magdalena Post MD Unavailable Unavailable Procedures Procedure Date No Service Provided This Day Advance Directives Directive Yes / No Effective Date File Name No Information Encounters Encounter Description Practice Location Reason(s) For Visit Diagnoses Date Provider Providers Copied on Encounter [facility], [address], [place], [place], [id number], [place] tel:[phone] [facility] No Information [facility]. [address] [place] [address], [place] [address], [place], [place], [id number], [place]. tel:[phone] Family History Family Member Type Diagnosis Age At Onset No Information Payers Payer name Insurance type Covered green party ID Authoriza tion(s) No Information Social History Type Description Quantity Date Captured Comments Sex Female Smoking Status No Information Chief Complaint And Reason For Visit No Information Reason For Referral Reason For Referral No Information History Of Present Illness Encounter Date Complaint History Of Prese nt Illness No Information Functional Status Date Functional Assessmen t No Information Instructions Date Instruction Additional Infor mation No Information Assessments Type Assessment Date No Information Patient Care Teams Name Effective Dates (start - stop) Status Members No Information
== END 2024-04-24 08:41 | disposition home or self-care (01) ==
PROVIDERS: PCP Internal Medicine; Visit Provider Surgery
DX: K64.8 Other hemorrhoids (principal)
CPT/HCPCS: 99024